=== PATIENT | male | born 1980 | race Hispanic/Latino ===

== ENCOUNTER 2023-01-05 15:15 | Emergency (ER) | payer MEDICARE, OTHER ==
[~2023-01-05] VITALS: Ht 175.3 cm; Wt 99.3 kg
[2023-01-05] MEDS ORDERED: CARBAMAZEPINE200 M1 (15:36)
[2023-01-05] MEDS ORDERED: DULOXETINE HCL30 MG (15:37)
[2023-01-05] MEDS ORDERED: CLARITIN10 M2 (15:37)
[2023-01-05] MEDS ORDERED: OMEPRAZOLE20 MG (15:37)
[2023-01-05] MEDS ORDERED: FAMOTIDINE20 MG (15:37)
[2023-01-05] MEDS ORDERED: SUCRALFATE1 GM (15:38)
[2023-01-05] MEDS ORDERED: VENTOLIN HFA18 GM (15:38)
[2023-01-05 15:47] LABS: BASOPHILS 0.6 % (0-2); EOSINOPHILS 1.5 % (0-6); HEMATOCRIT 49.4 % (35.0-50.0); HEMOGLOBIN 17.2 g/dL (12.0-18.0); LYMPHOCYTES 23.4 % (24-44); MCH 31.8 (27-36); MCHC 34.8 g/dl (30-36); MCV 91.3 fl (81-99); MONOCYTES 7.9 % (0-12); NEUTROPHILS 66.6 % (39-80); PLATELET COUNT 308 K/uL (140-440); RBC 5.41 M/ul (4.3-5.7); RDW 13.3 (10.5-15.0)
[2023-01-05 16:05] LABS: ALBUMIN 3.8 g/dL (3.4-5.0); ALBUMIN/GLOBULIN RATIO 0.97 (1.1-2.4); ALKALINE PHOSPHATASE 120 U/L (46-116); ANION GAP 12.8 (7-21); AST (SGOT) 22 U/L (15-37); BILIRUBIN, TOTAL 0.4 ng/dL (0.2-1.0); BUN/CREATININE RATIO 12.24 (6.0-28.6); CALCIUM 8.8 mg/dL (8.5-10.1); CARBAMAZEPINE (TEGRETOL) 2.2 ug/mL (4.0-12.0); CARBON DIOXIDE 28 mmol/L (21-32); CHLORIDE 104 mmol/L (98-107); CREATININE, SERUM 0.98 mg/dL (0.70-1.30); GLOMERULAR FILTRATION RATE,EST 100 mL/min (>60); POTASSIUM 3.8 mmol/L (3.5-5.1); PROTEIN, TOTAL 7.7 g/dL (6.4-8.2); UREA NITROGEN 12 mg/dL (7-18)
[2023-01-05 16:07] LABS: ALT (SGPT) 45 U/L (14-59)
[2023-01-05 16:20] LABS: INFLUENZA B NAA NEGATIVE (NEGATIVE); RESPIRATORY SYNCYTIAL VIR NAA NEGATIVE (NEGATIVE)
[2023-01-05] MEDS ORDERED: ONDANSETRON HCL4 MG PO (16:33)
[2023-01-05] MEDS ORDERED: MECLIZINE HCL25 MG PO (16:33)
[2023-01-05 16:52] VITALS: BP 125/86
--- NOTE | 2023-01-06 07:44 | EKG ---
[facility] [address] [place], [place] [address] Signed Normal sinus rhythm with sinus arrhythmia Normal ECG No previous ECGs available Confirmed by MIGUELINA SOTOMAYOR MD ([id number]) on 01/06/2023 7:44:27 AM Electronically Signed By: MIGUELINA SOTOMAYOR 01/06/23 0744 PATIENT NAME: WILLIAM MAR Electrocardiogram DATE OF : 84 PHYSICIAN: MIGUELINA SOTOMAYOR REPORT #: [id number] REPORT IS CONFIDENTIAL AND NOT TO BE RELEASED WITHOUT AUTHORIZATION
== END 2023-01-05 16:48 | disposition home or self-care (01) ==
LOC: ED 15:15
PROVIDERS: Internal Medicine
DX: R42 Dizziness and giddiness (principal); R10.13 Epigastric pain; Z11.52 Encounter for screening for COVID-19; G40.909 Epilepsy, unspecified, not intractable, without status epilepticus; Z79.899 Other long term (current) drug therapy; Z88.5 Allergy status to narcotic agent
CPT/HCPCS: 36415; 70450; 71045; 80053; 80156; 84484; 85025; 85379; 87502; 93005; 93010; A9270; C9113; C9803; J2405; U0002

== ENCOUNTER 2023-10-15 13:47 | Observation (INO) | payer MEDICARE, OTHER ==
[2023-10-15] VITALS (12 sets, daily range): BP systolic 115–130; BP diastolic 78–98
[~2023-10-15] VITALS: Ht 175.3 cm; Wt 89.1 kg
[~2023-10-15 13:47] MED LIST: CARBAMAZEPINE200 M1 PO; CLARITIN10 MG PO; DULOXETINE HCL30 MG PO; FAMOTIDINE40 MG PO; MECLIZINE HCL25 MG PO; OMEPRAZOLE20 MG PO; ONDANSETRON HCL4 MG PO; SUCRALFATE1 GM; VENTOLIN HFA18 GM
--- OUTSIDE RECORDS SUMMARY | 2023-10-15 13:54 | XMS ---
PreManage Notification: WLILIAM MAR Security Load Out Supervisor Events No recent Security Events currently on file CRITERIA MET - [facility] - 2 Visits in 30 Days CARE PROVIDERS -, [facility] Dentist: Claim Professional [facility] Michel PHONE: [phone] -Michel- Dentist: Claim Professional [facility] PHONE: [phone] MICHEL PRIMARY Clinic/Center: Primary Care [facility] CLINIC PHONE: [phone] KAELYN CHOI Nurse Practitioner Current PHONE: Unknown NANCY HIGHTOWER [facility] Current PHONE: Unknown Quin has no Care Guidelines for this patient. Damian VISIT COUNT (12 MO.) [address] [facility] TOTAL 4 NOTE: Visits indicate total known visits. ED/UCC VISIT TRACKING (12 MO.) 10/15/2023 13:48 [facility] Schraderony [facility] [place] TYPE: Emergency COMPLAINT: - CHOCKING 10/05/2023 11:53 ABENA Reza [place] TYPE: Emergency COMPLAINT: - SEIZURE DIAGNOSES: - Allergy status to narcotic agent - Epilepsy, unspecified, not intractable, without status epilepticus - Other mcfp (current) drug therapy - Unspecified convulsions 06/05/2023 10:34 [facility] Schraderony [facility] [place] TYPE: Emergency COMPLAINT: - FALL DUE TO SEIZURE,R LEG PAIN,LOSS OF R SIDE BODY DIAGNOSES: - Allergy status to narcotic agent - Anesthesia of skin - Cervicalgia - Contusion of right foot, initial encounter - Exposure to other specified factors, initial encounter - Other generalized epilepsy and epileptic syndromes, not intractable, without status epilepticus - Other osteopathic neurologist (current) drug therapy - Pain in right knee - Pain in right shoulder - Patient's other noncompliance with medication regimen for other reason 01/05/2023 15:[address] [facility] [place] TYPE: Emergency COMPLAINT: - CHEST PAIN, DIFFICULTY BREATHING DIAGNOSES: - Allergy status to narcotic agent - Chest pain, unspecified - Contact with and (suspected) exposure to COVID-19 - Dizziness and giddiness - Encounter for screening for COVID-19 - Epigastric pain - Epilepsy, unspecified, not intractable, without status epilepticus - Other osteopathic neurologist (current) drug therapy INPATIENT VISIT TRACKING (12 MO.) No inpatient visits to display in this time frame [email or web address]
[2023-10-15 14:02] LABS: BASOPHILS 0.5 % (0-2); HEMATOCRIT 52.3 % (35.0-50.0); LYMPHOCYTES 23.6 % (24-44); MCH 31.7 (27-36); MCHC 34.4 g/dl (30-36); MCV 92.3 fl (81-99); MONOCYTES 7.1 % (0-12); NEUTROPHILS 67.8 % (39-80); PLATELET COUNT 287 K/uL (140-440); RBC 5.66 M/ul (4.3-5.7); RDW 13.5 (10.5-15.0)
[2023-10-15 14:18] LABS: ALBUMIN 4.2 g/dL (3.4-5.0); ALBUMIN/GLOBULIN RATIO 1.02 (1.1-2.4); ANION GAP 14.8 (7-21); BILIRUBIN, TOTAL 0.3 ng/dL (0.2-1.0); BUN/CREATININE RATIO 14.14 (6.0-28.6); CALCIUM 9.1 mg/dL (8.5-10.1); CREATININE, SERUM 0.99 mg/dL (0.70-1.30); POTASSIUM 3.8 mmol/L (3.5-5.1); PROTEIN, TOTAL 8.3 g/dL (6.4-8.2)
[2023-10-15] MEDS ORDERED: LORazepam 2 MG/ML VIAL IV ONE (16:30)
[2023-10-15] MEDS ORDERED: AMP/SULBACTAM SOD 3 GM in SODIUM CHLORIDE 0.9% 100 ML IV ONE (17:15)
[2023-10-15] MEDS ORDERED: DEXAMETHASONE SOD PHOS 10 MG/ML VIAL IV ONE (18:30)
[2023-10-15] MEDS ORDERED: ALBUTEROL/IPRATROPIUM 3 ML NEB INH ONE (18:30)
[2023-10-15] MEDS ORDERED: SODIUM CHLORIDE 0.9% 1,000 ML IV SCH (18:45)
[2023-10-15] MEDS ORDERED: ALBUTEROL SULFATE 0.083% 3 ML VIAL INH PRN (18:45)
[2023-10-15] MEDS ORDERED: ondansetron HCL 4 MG/2 ML VIAL IV PRN (18:45)
--- NOTE | 2023-10-15 19:17 | NUR ---
REPORT FROM DINORAH GAMEZ, ED NURSE. ALL QUESTIONS ANSWERED.
--- NOTE | 2023-10-15 19:25 | NUR ---
PATIENT ARRIVED VIA CCU NURSE TULIO Mcdonough RN, PATIENT ARRIVED VIA ED STRETCHER, PATIENT ABLE TO TRANSFER TO HOSPITAL BED, HE IS NOTED TO HAVE AUDIBLE WHEEZES, HE IS ALERT AND ORIENTED X4. HE IS ON ROOM AIR. TALKING CLEARLY, OCCASSIONALLY COUGHING. V/S STABLE
[2023-10-15] MEDS ORDERED: ENOXAPARIN SODIUM 40 MG/0.4 ML SYR SUB-Q SCH (19:56)
[2023-10-15] MEDS ORDERED: ALBUTEROL SULFATE 0.083% 3 ML VIAL INH SCH (20:00)
--- NOTE | 2023-10-15 21:15 | NUR ---
RN NOTIFIED MD OF PATIENT'S GI AND SEIZURE HX. NEW ORDERS RECEIVED AND VERIFIED VIA VERBAL READ BACK. MD CLARIFICATED PATIENTS MEDICAL STATUS AND IS COMFORTABLE WITH PATIENT MEDICAL STATUS BEING MED/SURG.
[2023-10-15] MEDS ORDERED: carBAMazepine 200 MG TAB PO SCH (21:34)
[2023-10-15] MEDS ORDERED: MORPHINE SULFATE 4 MG/ML VIAL IV PRN (21:45)
[2023-10-15] MEDS ORDERED: ACETAMINOPHEN 500 MG TAB PO PRN (21:45)
[2023-10-15] MEDS ORDERED: LORazepam 2 MG/ML VIAL IV PRN (21:45)
[2023-10-15] MEDS ORDERED: PANTOPRAZOLE SODIUM 40 MG/10 ML VIAL IV SCH (22:00)
[2023-10-15] MEDS ORDERED: AMP/SULBACTAM SOD 3 GM in SODIUM CHLORIDE 0.9% 100 ML IV SCH (22:00)
--- NOTE | 2023-10-15 22:45 | NUR ---
HS MEDICATIONS GIVEN. PATIENT GIVEN AN IS AND WAS INSTRUCTED ON HOW TO USE IT. PATIENT DEMONSTRATES UNDERSTANDING BY VERBAL TEACH BACK AND DEMONSTRATION. NOTED OXYGEN DESATURATION 86%-89% ON RA WHILE SLEEPING. 2L OXYGEN VIA NC PLACED ON PATIENT. O2SAT WNL AT THIS TIME. NO FURTHER NEEDS AT THIS TIME. CALL LIGHT WITHIN REACH.
--- NOTE | 2023-10-16 00:07 | NUR ---
PATIENT RESTING IN BED. DENIES ANY SOB, LUNG SOUNDS WHEEZING IN UPPER LOBES AND DIM IN LOWER LOBES. PATIENT TRIED TO VOID USING URINAL WITH NO SUCCESS. PATIENT STATING, "I DON'T NEED TO PEE RIGHT NOW." RT IN TO SEE PATIENT, PATIENT DOES NOT WISH TO HAVE HIS BREATHING TREATMENT. NO FURTHER NEEDS AT THIS TIME. CALL LIGHT WITHIN REACH.
[2023-10-16] MEDS ORDERED: AMP/SULBACTAM SOD 3 GM VIAL IV ONE (01:55)
[2023-10-16] MEDS ORDERED: AMP/SULBACTAM SOD 3 GM in SODIUM CHLORIDE 0.9% 100 ML IV SCH (02:00)
--- NOTE | 2023-10-16 02:00 | NUR ---
PATIENT ABLE TO VOID 300ML URINE IN URINAL. NO NEW CONCERNS, PATIENT HAS NO REQUESTS, REPORTS NO NEEDS AT THIS TIME.
--- NOTE | 2023-10-16 03:32 | NUR ---
PATIENT RESTING QUIETLY IN BED, EYES CLOSED RESPIRATIONS REGULAR AT 15/MIN. NO DISTRESS NOTED.
[2023-10-16 04:48] VITALS: BP 133/102
[2023-10-16 05:25] LABS: BASOPHILS 0.2 % (0-2); HEMATOCRIT 45.7 % (35.0-50.0); HEMOGLOBIN 15.3 g/dL (12.0-18.0); MCH 31.1 (27-36); MCHC 33.4 g/dl (30-36); MCV 93.1 fl (81-99); NEUTROPHILS 84.8 % (39-80); PLATELET COUNT 231 K/uL (140-440); RBC 4.91 M/ul (4.3-5.7); RDW 13.4 (10.5-15.0)
[2023-10-16 05:31] LABS: ANION GAP 9.2 (7-21); BUN/CREATININE RATIO 11.11 (6.0-28.6); CALCIUM 8.5 mg/dL (8.5-10.1); CREATININE, SERUM 0.72 mg/dL (0.70-1.30); POTASSIUM 4.2 mmol/L (3.5-5.1)
[2023-10-16 05:38] VITALS: BP 109/77
--- NOTE | 2023-10-16 05:49 | NUR ---
PATIENT ALERT AND ORIENTED THIS AM, HE HAS REPORTED A 5/10 HEADACHE ONLY COMPLAINT, TYLENOL PRN ADMINISTERED. HE IS EATING JELLO AND APPLE JUICE PER CLEAR LIQUID DIET, STILL HAS OCCASSIONAL COUGH, LESS OFTEN THAN WHEN ADMITTED. WILL BE TRANSFERING TYLER TO ROOM 122.
--- NOTE | 2023-10-16 07:05 | NUR ---
REPORT RECIEVED FROM VERA XIE. PT SITTING UP IN BED AND RESPONDS WHEN ADDRESSED. PT REQUESTING TISSUES, PROVIDED. PT DENIES ANY OTHER NEEDS AT THIS TIME. CALL LIGHT IN REACH.
--- NOTE | 2023-10-16 08:02 | NUR ---
PATIENT IN BED AT THIS TIME. CALL LIGHT WITHIN REACH, NO FURTHER NEEDS AT THIS TIME.
[2023-10-16] MEDS ORDERED: ALBUTEROL SULFATE 0.083% 3 ML VIAL INH PRN (08:15)
--- NOTE | 2023-10-16 08:28 | NUR ---
IN TO ADMINISTER MEDICATIONS, SEE MAR. PT SITTING UP IN BED AND RESPONDS WHEN ADDRESSED. PT REPORITNG PAIN IN LEFT ARM 06/17 AND PT STATES "I AM FINE LONG I DO NOT MOVE IT." OFFERED HOT PACKS, PT ACCEPTS. HOT PACKS PROVIDED AND PLACED ON PTs SHOULDER AND ARM WITH CLOTH BETWEEN SKIN AND HOT PACK. PT TAKES PO MEDICATIONS WITH NO ISSUES. ASSESSMENT COMPLETE. LUNG SOUNDS CLEAR IN RUL AND JOANIE. DIMINISHED IN RLL AND LLL. SOME CRACKLES IN LLL. BOWEL TONES ACITE. RADIAL PULSES PALPABLE, EQUAL AND STRONG. PEDAL PULSES PALPABLE, EQUAL AND STRONG. IVs FLUSH WNL. PT DENIES ANY OTHER NEEDS AT THIS TIME. CALL LIGHT IN REACH.
[2023-10-16] MEDS ORDERED: PANTOPRAZOLE SODIUM 40 MG TABEC PO SCH (09:00)
[2023-10-16] MEDS ORDERED: AMOX TR-K CLV1 EAC1 PO (09:08)
[2023-10-16 09:23] VITALS: BP 112/70
--- NOTE | 2023-10-16 09:48 | NUR ---
IN TO ROUND ON PT. PT SITTING UP IN BED AND REPSONDS WHEN ADDRESSED. IV ABX COMPLETE. PT SL AT THIS TIME. PT STATING PAIN "IS BETTER." PT REPORTING BEING DONE WITH BREAKFAST TRAY, TRAY REMOVED. PT DENIES ANY OTHER NEEDS AT THIS TIME. CALL LIGHT IN REACH.
[2023-10-16 10:03] VITALS: BP 112/70
--- NOTE | 2023-10-16 10:28 | NUR ---
SPOKE TO PATIENT ABOUT THE DC PLAN. PATIENT LIVES WITH HIS FRIEND. PATIENT PLANS TO GO HOME TODAY. PATIENT IS HOPING TO GET HIS DAILY MEDICATIONS TRANSFERED TO [facility] FROM [facility]. PHONE NUMBERS FOR THE [facility] WERE GIVEN TO PATIENT. PATIENT CAN NOT THINK OF ANYTHING CASE MANAGEMENT CAN HELP WITH AT THIS TIME. PATIENT CAN AFFORD FOOD, MEDICATIONS AND HOUSING. PATIENT DOES NOT USE DME. PATIENT HAS NO OTHER ISSUES AT THIS TIME.
--- NOTE | 2023-10-16 11:48 | NUR ---
MED REC COMPLETE
[2023-10-16] MEDS ORDERED: PHARMACY RENAL DOSE ADJUSTMENT 1 DOSE MISC PO SCH (12:00)
--- NOTE | 2023-10-16 12:13 | NUR ---
IN TO GO OVER DC INSTRUCTIONS. WRITTEN AND VERBAL INSTRUCTIONS PROVIDED. QUESTIONS ANSWERED. PT VERBALIZES UNDERSTANDING. IVs REMOVED WNL. PT DENIES ANY OTHER NEEDS FROM THIS RN AT THIS TIME. CALL LIGHT IN REACH.
[2023-10-16 12:49] VITALS: BP 109/72
[2023-10-16] MEDS ORDERED: ALBUTEROL/IPRATROPIUM 3 ML NEB INH SCH (14:00)
--- NOTE | 2023-10-16 15:09 | NUR ---
UR CLINICAL REVIEW: 2MN ALEK, MEETS OBS CRITERIA MEDICARE OBS 10/15/23 @ 2159 ORDER MATCHES STATUS NO AUTH REQUIRED PER MEDICARE RULES PLAN TO DC TO HOME WHEN STABLE 10/17/23
[2023-11-21] MEDS ORDERED: CARAFATE1 GM PO (11:24)
== END 2023-10-16 13:13 | disposition home or self-care (01) ==
LOC: ED 13:47 → CCU 13:49 → MS 13:49
PROVIDERS: Emergency Medicine; ADMIT Internal Medicine; ATTEND Internal Medicine
DX: J69.0 Pneumonitis due to inhalation of food and vomit (principal); Z88.5 Allergy status to narcotic agent; Z79.899 Other long term (current) drug therapy; R56.9 Unspecified convulsions; Z88.1 Allergy status to other antibiotic agents
CPT/HCPCS: 36415; 70360; 70491; 71045; 71260; 80048; 80053; 80156; 80307; 81001; 85025; 94640; 94667; 94760; 96372; 96374; 96375; 96376; 99284-25; 99285-25; A9270; G0378; G0480; J0295; J1100; J1650; J2060; J2405; J2470; J7030; Q9967

== ENCOUNTER 2023-10-16 13:21 | Emergency (ER) | payer MEDICARE, OTHER ==
[~2023-10-16] VITALS: Ht 175.3 cm; Wt 92.6 kg
[~2023-10-16 13:21] MED LIST changes: +AMOX TR-K CLV1 EAC1 PO
--- OUTSIDE RECORDS SUMMARY | 2023-10-16 13:28 | XMS ---
PreManage Notification: WILLIAM MAR Security Guide Escort Events No recent Security Events currently on file CRITERIA MET - [facility] - 2 Visits in 30 Days CARE PROVIDERS -, [facility] Dentist: Executive Creative Director [facility] Michel PHONE: [phone] -Michel- Dentist: Executive Creative Director [facility] PHONE: [phone] MICHEL PRIMARY Clinic/Center: Primary Care [facility] CLINIC PHONE: [phone] KAELYN CHOI Nurse Practitioner Current PHONE: Unknown NANCY HIGHTOWER [facility] Current PHONE: Unknown Quin has no Care Guidelines for this patient. Damian VISIT COUNT (12 MO.) [address] [facility] TOTAL 5 NOTE: Visits indicate total known visits. ED/UCC VISIT TRACKING (12 MO.) 10/16/2023 13:21 ABENA Reza [place] TYPE: Emergency COMPLAINT: - SEIZURE 10/15/2023 13:48 ABENA Reza [place] TYPE: Emergency COMPLAINT: - CHOCKING 10/05/2023 11:53 ABENA Reza [place] TYPE: Emergency COMPLAINT: - SEIZURE DIAGNOSES: - Allergy status to narcotic agent - Epilepsy, unspecified, not intractable, without status epilepticus - Other equipment operator intermodal yard (current) drug therapy - Unspecified convulsions 06/05/2023 10:34 ABENA Reza [place] TYPE: Emergency COMPLAINT: - FALL DUE TO SEIZURE,R LEG PAIN,LOSS OF R SIDE BODY DIAGNOSES: - Allergy status to narcotic agent - Anesthesia of skin - Cervicalgia - Contusion of right foot, initial encounter - Exposure to other specified factors, initial encounter - Other generalized epilepsy and epileptic syndromes, not intractable, without status epilepticus - Other senior care (current) drug therapy - Pain in right knee - Pain in right shoulder - Patient's other noncompliance with medication regimen for other reason 01/05/2023 15:16 ABENA Reza [place] TYPE: Emergency COMPLAINT: - CHEST PAIN, DIFFICULTY BREATHING DIAGNOSES: - Allergy status to narcotic agent - Chest pain, unspecified - Contact with and (suspected) exposure to COVID-19 - Dizziness and giddiness - Encounter for screening for COVID-19 - Epigastric pain - Epilepsy, unspecified, not intractable, without status epilepticus - Other senior care (current) drug therapy INPATIENT VISIT TRACKING (12 MO.) 10/15/2023 13:49 ABENA Reza OR TYPE: Observation COMPLAINT: - ASPIRATION PNEUMONIA [email or web address]
[2023-10-16] MEDS ORDERED: levETIRAcetam 500 MG/5 ML VIAL IV ONE (13:35)
[2023-10-16] MEDS ORDERED: LORazepam 2 MG/ML VIAL IV ONE (13:45)
[2023-10-16 13:46] LABS: BASOPHILS 0.3 % (0-2); EOSINOPHILS 0.1 % (0-6); HEMATOCRIT 45.9 % (35.0-50.0); HEMOGLOBIN 15.4 g/dL (12.0-18.0); MCH 31.2 (27-36); MCHC 33.5 g/dl (30-36); MCV 93.2 fl (81-99); MONOCYTES 7.4 % (0-12); NEUTROPHILS 72.2 % (39-80); PLATELET COUNT 239 K/uL (140-440); RBC 4.92 M/ul (4.3-5.7); RDW 13.2 (10.5-15.0)
[2023-10-16 14:03] LABS: ALBUMIN 3.6 g/dL (3.4-5.0); ALBUMIN/GLOBULIN RATIO 1.03 (1.1-2.4); ALCOHOL, MEDICAL <3 ng/dL (<3); ALKALINE PHOSPHATASE 120 U/L (46-116); ALT (SGPT) 17 U/L (14-59); ANION GAP 12.5 (7-21); AST (SGOT) 10 U/L (15-37); BILIRUBIN, TOTAL 0.4 ng/dL (0.2-1.0); BUN/CREATININE RATIO 11.36 (6.0-28.6); CALCIUM 8.5 mg/dL (8.5-10.1); CARBON DIOXIDE 28 mmol/L (21-32); CHLORIDE 106 mmol/L (98-107); CREATININE, SERUM 0.88 mg/dL (0.70-1.30); GLOMERULAR FILTRATION RATE,EST 111 mL/min (>60); POTASSIUM 3.5 mmol/L (3.5-5.1); PROTEIN, TOTAL 7.1 g/dL (6.4-8.2); UREA NITROGEN 10 mg/dL (7-18)
[2023-10-16 14:07] LABS: CARBAMAZEPINE (TEGRETOL) 6.7 ug/mL (4.0-12.0)
[2023-10-16 16:14] LABS: BILIRUBIN, URINE POSITIVE (negative); BLOOD/HGB, URINE TRACE-I (Negative); KETONE, URINE NEGATIVE (Negative); LEUK ESTERASE, URINE NEGATIVE (negative); NITRITE, URINE NEGATIVE (negative)
[2023-10-16 16:21] LABS: BACTERIA, URINE NONE SEEN /hpf (negative); CASTS, URINE NONE SEEN \\lpf; COLLECTION TYPE, URINE CLEAN CATCH; CRYSTALS, URINE NONE SEEN (0-1+); EPITHELIAL CELLS, URINE SQUAMOUS 1+ /lpf (0-1+); RED BLOOD CELLS, URINE 0-1 /hpf (0-5); REFLEX CULTURE, URINE No (No); WHITE BLOOD CELLS, URINE 0-1 /HPF (0-5)
[2023-10-16 16:36] LABS: AMPHETAMINES, URINE NEGATIVE (NEGATIVE); BARBITURATES, URINE NEGATIVE (NEGATIVE); BENZODIAZEPINE, URINE NEGATIVE (NEGATIVE); BUPRENORPHINE, URINE NEGATIVE (NEGATIVE); CANNABINOID, URINE NEGATIVE (NEGATIVE); COCAINE, URINE NEGATIVE (NEGATIVE); ECSTASY, URINE NEGATIVE (NEGATIVE); FENTANYL, URINE NEGATIVE (NEGATIVE); METHADONE, URINE NEGATIVE (NEGATIVE); OPIATES, URINE NEGATIVE (NEGATIVE); OXYCODONE, URINE NEGATIVE (NEGATIVE); PHENCYCLIDINE, URINE NEGATIVE (NEGATIVE)
[2023-10-16 17:35] VITALS: BP 112/78
== END 2023-10-16 17:35 | disposition home or self-care (01) ==
LOC: ED 13:21
PROVIDERS: Emergency Medicine
DX: R56.9 Unspecified convulsions (principal); Z79.899 Other long term (current) drug therapy; Z88.5 Allergy status to narcotic agent; Z88.1 Allergy status to other antibiotic agents
CPT/HCPCS: 36415; 80053; 80156; 80307; 81001; 85025; 96374; 99284-25; G0480; J2060

== ENCOUNTER 2024-01-02 18:28 | Inpatient (IN) | payer MEDICARE, OTHER ==
[~2024-01-02] VITALS: Ht 175.3 cm; Wt 87.6 kg
[~2024-01-02 18:28] MED LIST changes: +CARAFATE1 GM PO; +SEVOFLURANE 250 ML BTL INH ONE
[2024-01-02] MEDS ORDERED: PANTOPRAZOLE SODIUM 40 MG/10 ML VIAL IV ONE (18:45)
[2024-01-02] MEDS ORDERED: LACTATED RINGER'S 1,000 ML IV SCH ×2 (19:30→20:15)
[2024-01-02] MEDS ORDERED: FAMOTIDINE 20 MG/ 2 ML VIAL IV ONE (19:30)
[2024-01-02 19:56] LABS: BASOPHILS 0.6 % (0-2); EOSINOPHILS 2.6 % (0-6); HEMATOCRIT 47.7 % (35.0-50.0); HEMOGLOBIN 16.4 g/dL (12.0-18.0); LYMPHOCYTES 28.9 % (24-44); MCH 31.5 (27-36); MCHC 34.3 g/dl (30-36); MCV 91.8 fl (81-99); MONOCYTES 9.8 % (0-12); NEUTROPHILS 58.1 % (39-80); PLATELET COUNT 303 K/uL (140-440); RDW 13.7 (10.5-15.0)
[2024-01-02 20:02] LABS: INR 0.96 (0.80-1.30)
[2024-01-02 20:15] LABS: ALBUMIN 3.5 g/dL (3.4-5.0); ALBUMIN/GLOBULIN RATIO 0.9 (1.1-2.4); ANION GAP 11.7 (7-21); BILIRUBIN, TOTAL 0.4 ng/dL (0.2-1.0); BUN/CREATININE RATIO 15.71 (6.0-28.6); CREATININE, SERUM 0.7 mg/dL (0.70-1.30); POTASSIUM 3.7 mmol/L (3.5-5.1); PROTEIN, TOTAL 7.4 g/dL (6.4-8.2); TSH, 3RD GENERATION 1.727 uIU/mL (0.358-3.740)
[2024-01-02] MEDS ORDERED: propofoL 200 MG/20 ML VIAL ONE (20:32)
[2024-01-02] MEDS ORDERED: LIDOCAINE HCL 2% 5 ML SDV ONE (20:32)
[2024-01-02] MEDS ORDERED: fentaNYL citrate 100 MCG/2 ML VIAL ONE (20:32)
[2024-01-02] MEDS ORDERED: ROCURONIUM BROMIDE 50 MG/5 ML SYR ONE (20:34)
[2024-01-02] MEDS ORDERED: ePHEDrine sulfate 50 MG/ML AMP ONE (20:42)
[2024-01-02] MEDS ORDERED: fentaNYL citrate 50 MCG/ML SDV IV PRN (20:45)
[2024-01-02] MEDS ORDERED: IBLOOD GLUCOSE TEST STRIP 1 EA TEST VI PRN (20:45)
[2024-01-02] MEDS ORDERED: NALOXONE HCL 0.4 MG SYR IV PRN (20:45)
[2024-01-02] MEDS ORDERED: ondansetron HCL 4 MG/2 ML VIAL IV PRN (20:45)
[2024-01-02] MEDS ORDERED: DEXAMETHASONE SOD PHOS 4 MG/ML VIAL ONE (20:47)
[2024-01-02] MEDS ORDERED: SUGAMMADEX SODIUM 200 MG/2 ML ML ONE (20:52)
[2024-01-02] MEDS ORDERED: FAMOTIDINE 20 MG/ 2 ML VIAL IV SCH (21:00)
[2024-01-02] MEDS ORDERED: PANTOPRAZOLE SODIUM 40 MG/10 ML VIAL IV SCH (21:26)
[2024-01-02] MEDS ORDERED: carBAMazepine 200 MG TAB PO SCH (21:27)
[2024-01-02] MEDS ORDERED: DULOXETINE HCL 30 MG CAP PO SCH (21:28)
[2024-01-02] MEDS ORDERED: SUCRALFATE 1 GM TAB PO SCH (21:30)
--- NOTE | 2024-01-02 21:50 | NUR ---
PT ARRIVED TO ROOM 114 FROM PACU, THIS RN RECEIVED REPORT FROM BETH GAMEZ. PT SLEEPY, BUT RESPONDS. SLOW, BUT ABLE TO MOVE SELF WITH CUES. PT A/O.
[2024-01-02 22:01] VITALS: BP 111/76
--- NOTE | 2024-01-02 22:10 | NUR ---
01/02/242209 Pam Henley 2109 PT ARRIVED IN PACU SLEEPY AND COUGHING. SUCTIONED MOUTH. 2124 DR AT BEDSIDE. PT OPENS EYES, BUT DOESN'T ANSWER QUESTIONS ASKED BY DR. CONTINUES TO COUGH. 2139 PT OPENS EYES TO VERBAL COMMAND, THEN CLOSES THEM. COUGHING AND SUCTIONED BY RN. 2151 TO ROOM 114. PT MOVED SELF FROM STRECHER TO BED WITH HELP FROM RN'S. REPORT GIVEN TO RN.
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
[2024-01-02 22:55] VITALS: BP 112/73
[2024-01-02 23:58] VITALS: BP 109/72
[2024-01-03] VITALS (13 sets, daily range): BP systolic 11–152; BP diastolic 55–79
--- NOTE | 2024-01-03 00:12 | NUR ---
POST OP VSS, pt ABLE TO MAINTAIN AIRWAY AND TOLERATING CLEAR LIQUIDS SAFELY, pt EDUCATED ON CHIN TUCK AND HOB ELEVATED FOR MED ADMINISTRATION-SEE EMAR. pt TOLERATED MEDS WNL. NO FURTHER NEEDS OR CONCERNS, CALL LIGHT IN REACH.
--- NOTE | 2024-01-03 00:30 | NUR ---
REVIEWING PT LAST ADMISSION 11/2023, RISHI SPOKE WITH PT AND NUMBERS WERE GIVEN FOR DHS, INFORMATION GIVEN WELL FOR VARIOUS PROGRAMS WITHIN THE COMMUNITY FOR ASSISTANCE. PER CHART 11/21/23, [facility] NUMBER GIVEN WELL. PT DID STATE THAT SAFEWAY HAS LEFT SEVERAL MESSAGES HIS PERSCRIPTIONS WERE READY, "DON'T BLAME THEM, ITS MY FAULT". CM CONSULT IN CHART.
--- NOTE | 2024-01-03 00:40 | NUR ---
rounded on pt, pt resting in bed with eyes closed and on ra. rr even and unlabored. no distress noted. cpox at bedsid, spo2 upper 90's. hr wnl. call light in reach along with other belongings.
--- NOTE | 2024-01-03 01:35 | NUR ---
rounded on pt, pt continues to rest in bed with eyes close and on ra. rr even and unlabored, rate approx 16. no resp distress noted. cpox in place, spo2 96%, hr 94. iv site wnl, fluids infusing as directed. call light in reach.
--- NOTE | 2024-01-03 03:00 | NUR ---
CREDIT REFERENCE CLERK PLACED SEIZURE PAD ON PT BED. PT REMAINED ASLEEP. CALL LIGHT WITHIN REACH.
--- NOTE | 2024-01-03 04:32 | NUR ---
ROUNDED ON pt, pt RESTING IN BED WITH EYES CLOSED AND ON RA. RR EVEN AND UNLABORED. IV SITE WNL, FLUIDS INFUSING DIRECTED. CALL LIGHT IN REACH.
--- NOTE | 2024-01-03 05:44 | NUR ---
STEEL SPAR OPERATOR OBTAINED VITALS AND I&O. PT STATES NO NEEDS AT THIS TIME. CALL LIGHT WITHIN REACH.
--- NOTE | 2024-01-03 06:28 | NUR ---
SCHEDULED CARAFATE GIVEN-SEE EMAR VIA SLURRY. pt INTERACTIVE WITH STAFF, EAGER TO GO HOME AND SEE HIS CATS. NO FURTHER NEEDS OR CONCERN VERBALIZED. CALL LIGHT IN REACH. NO ACUTE CHANGES TO FOCUSED ASSESSMENT.
--- NOTE | 2024-01-03 06:35 | NUR ---
NEW BAG IV FLUIDS INFUSING DIRECTED, IV SITE WNL. PUMP CLARED. CALL LIGHT IN REACH.
--- NOTE | 2024-01-03 08:00 | NUR ---
PT had both iv protonix and po protonix ordered. md notified. vo given to d/c iv protonix if tolerating po medications. iv protonix dc'd.
--- NOTE | 2024-01-03 08:50 | NUR ---
PT TOLERATED A.M. PO MEDICATIONS. DENIED FEELING THAT MEDICATIONS WERE FEELING STUCK. PT RECEIVED BREAKFAST AND STATED THE JELLO FELT THAT IT "GOT STUCK" IN HIS THROAT AND BEGAN TO VOMIT.
[2024-01-03] MEDS ORDERED: PANTOPRAZOLE SODIUM 40 MG TABEC PO SCH (09:00)
--- NOTE | 2024-01-03 10:15 | NUR ---
PT REPORTED MIDSTERNAL CHEST PAIN. DESCRIBED STABBING PAIN THAT DID NOT RADIATE. PT DENIES HX OF SIMILAR PAIN OR CARDIAC HX. PT IS NON DIAPHORETIC. DENIES NAUSEA ATT. BP 113/79 HR 98 SPO2 96%. CHARGE NURSE AND MD NOTIFIED. NEW ORDERS WERE GIVEN FOR EKG, TROPONIN, MORPHINE 2MG IV, AND ONE TIME NOW DOSE OF CARAFATE. MD AT BEDSIDE. WILL CONTINUE TO MONITOR PT.
[2024-01-03] MEDS ORDERED: MORPHINE SULFATE 4 MG/ML VIAL IV ONE (10:30)
[2024-01-03] MEDS ORDERED: SUCRALFATE 1 GM TAB PO ONE (10:30)
--- NOTE | 2024-01-03 10:44 | NUR ---
pt states morphine is helping. rates pain 4/10. denies any other needs at this time. pt tolerated carafate slurry. call light within reach.
--- NOTE | 2024-01-03 10:44 | NUR ---
RN ARRIVES TO NURSES STATION, PT C/O CHEST PAIN, ON/OFF FOR LAST COUPLE HOURS. MD NOTIFIED VIA PRIMARY RN VIA TELEPHONE. ORDER TO GET EKG, MD COMING TO BEDSIDE SHORTLY. WHEN IN ROOM, EKG COMPLETED, PT STATES PAIN 08/17. MD ARRIVES TO BEDSIDE AND REVIEWS EKG. ORDER FOR TROPONIN, X1 DOSE MORPHINE 2MG IV, AND CARAFAT 1GM ONCE (EXTRA DOSE). ORDERS INPUT SEE MAY. PRIMARY RN AWARE OF ORDERS.
[2024-01-03] MEDS ORDERED: NITROGLYCERIN 0.4 MG SUBL SL PRN (10:45)
[2024-01-03] MEDS ORDERED: LIDOCAINE 2% (VISCOUS) HCL 15 ML UDC PO PRN (10:45)
[2024-01-03] MEDS ORDERED: CARBAMAZEPINE200 M3 PO (11:00)
--- NOTE | 2024-01-03 12:28 | NUR ---
rounded on pt. pt appears to be sleeping comfortably. respirations even and regular. call light within reach.
--- NOTE | 2024-01-03 12:58 | NUR ---
ROUNDED ON PT. PT IS A/O, RESPIRATIONS EVEN AND REGULAR. IV FLUIDS RUNNING. PT IS ATTEMPTING TO EAT LUNCH OF CLEAR LIQUIDS. PT STATES HE CONTINUES TO HAVE PAIN BUT IT HAS IMPROVED.
--- NOTE | 2024-01-03 14:08 | NUR ---
PT STATES HE ONLY TRIED GRAPE JUICE FOR LUNCH BUT WAS ABLE TO TOLERATE AND SWALLOW WELL. DENIES N/V. REPORTS CONTINUED PAIN 4/10. STATES PAIN IS CONTINUED IN ABDOMEN WHICH IS HIS BASELINE AND 4/10 CP. MD AWARE, POSSIBLE ESOPHOGEAL SPASMS.
--- NOTE | 2024-01-03 14:34 | NUR ---
medications reconciled. patient has prescribed medications but is non-compliant
--- NOTE | 2024-01-03 16:11 | NUR ---
PT REPORTS INCREASED CP WITH 5/10 PAIN. STATES THE PAIN IS A STABBING INTERMITTENT PAIN THAT DOES NOT RADIATE. PT STATES SOME OF THE PAIN IS IN HIS THROAT. PT DOES NOT APPEAR TO BE IN ACUTE DISTRESS AND IS NON DIAPHORETIC. TELE MONITOR IN PLACE. CHARGE NURSE NOTIFIED. WILL CONTINUE TO MONITOR.
--- NOTE | 2024-01-03 16:19 | NUR ---
PT VS WNL POST SL NTG. PT STATES NITRO IS HELPING AND RATES PAIN 4/[address]
--- NOTE | 2024-01-03 16:51 | NUR ---
ROUNDED ON PT. PT STATES PAIN HAS DECREASED. PT IS A/O, RESPIRATIONS EVEN AND REGULAR. CALL LIGHT WITHIN REACH. IV FLUIDS RUNNING.
--- NOTE | 2024-01-03 17:34 | NUR ---
ROUNDED ON PT. PT IS A/O, RESPIRATIONS EVEN AND REGULAR. DENIES PAIN/NEEDS ATT. SITTING UP TO START DINNER.
--- NOTE | 2024-01-03 18:14 | NUR ---
PT IS A/O, RESPIRATIONS EVEN AND REGULAR. IV FLUIDS RUNNING. PT STATES THAT HE WAS ABLE TO TOLERATE DINNER MUCH BETTER. PT REPORTS 0/10 CHEST PAIN. CALL LIGHT WITHIN REACH.
--- NOTE | 2024-01-03 19:51 | NUR ---
CALLED DR SAHU, CLARIFICATION OF TELE ORDER. MESSAGE LEFT
--- NOTE | 2024-01-03 19:54 | NUR ---
PER TELEPHONE ORDER, OK TO DC TELE, OBSERVE FOR ASPIRATION/SWALLOWING PRECAUTIONS/ISSUES, OFFER VISCOUS LIDOCAINE MED TONIGHT. CALL FOR ANY ISSUES
--- NOTE | 2024-01-03 20:09 | NUR ---
PATIENT IN BED RESTING AT THIS TIME. VITALS DONE AND CHARTED. CALL LIGHT IN REACH. NO FURTHER NEEDS AT THIS TIME.
[2024-01-03] MEDS ORDERED: FAMOTIDINE 20 MG TAB PO SCH (21:00)
--- NOTE | 2024-01-03 21:54 | NUR ---
VISCOUS LIDOCAINE 5CC GIVEN PER ORDERS. TOLERATED WELL, TELE#2 DC'D. CPOX ON AT BEDSIDE, NO C/O AT THIS TIME, SEIZURE PRECAUTION PADS IN PLACE. IVF INFUSING
--- NOTE | 2024-01-03 22:21 | NUR ---
AWAKE, WATCHING TV, NO FURTHER C/O TROUBLE SWALLOWING, SEIZURE PADS IN PLACE
[2024-01-04] VITALS (10 sets, daily range): BP systolic 109–119; BP diastolic 65–79
--- NOTE | 2024-01-04 00:59 | NUR ---
Resting, eyes closed, on room air, no ss/x distress or swallowing difficulties, CPOX on at bedside, WNL. no s/sx seizure, seizure pads in place
--- NOTE | 2024-01-04 02:42 | NUR ---
RESTING, EYES CLOSED, NO SX DISTRESS OR SEIZURE ACTIVITY. SEIZURE PADS IN PLACE, IVF INFUSING W/O PROBLEMS.
--- NOTE | 2024-01-04 05:40 | NUR ---
Awakens easily, no c/o swallowing trouble, taking very small sips of fluids. tolerating well. on room air. Used urinal, voiding medium dark yellow urine. Repositioned in bed, CPOX on at bedside. No c/o pain,
--- NOTE | 2024-01-04 07:10 | NUR ---
RECIEVED REPORT FROM VERA GARCIA. PATIENT AWAKE IN BED. PATIENT REQUESTS CELL PHONE FROM BEDSIDE TABLE, CELL PHONE PROVIDED. PATIENT DENIES ADDITIONAL NEEDS AT THIS TIME. SEIZURE PADS IN PLACE. CALL LIGHT IN REACH.
--- NOTE | 2024-01-04 07:40 | NUR ---
PT RESTING IN BED. URINAL EMPTIED 300 ML YELLOW URINE. WARM WASH RAG PROVIDED. PT OFFERED SHOWER AND WILL LET US KNOW WHEN HE IS READY TO SHOWER. DID NOT SLEEP WELL PER PT, LIGHTS OFF, DENIES ANY NEEDS AT THIS TIME, CALL LIGHT IN REACH
--- NOTE | 2024-01-04 08:54 | NUR ---
PT RESTING IN BED. BREAKFAST TRAY CLEARED. PT STATES HE IS UNAABLE TO EAT "IT MADE ME NAUSEOUS". DENIES ANY NEEDS, CALL LIGHT IN REACH
--- NOTE | 2024-01-04 09:45 | NUR ---
IN ROOM TO ADMINISTER MEDICATIONS, SEE E-MAR. PATIENT EXPERIENCING 5/10 PAIN WITH SWALLOWING. ENCOURAGED PATIENT TO TAKE MEDICATIONS SLOWLY AND ADMINISTERED THEM ONE BY ONE. PATIENT BECAME NAUSEATED. NO EMESIS PRESENT AT THIS TIME. PATIENT TOLERATED PO MEDICATIONS WELL. PATIENT REQUESTED PRN MEDICATION FOR PAIN. PHARMACY CONTACTED. PATIENT DENIES ADDITIONAL NEEDS AT THIS TIME. SEIZURE PADS IN PLACE, CALL LIGHT IN REACH.
--- NOTE | 2024-01-04 10:00 | NUR ---
PT RESTING IN BED. VITALS AND IS AND OS COMPLETE. REFUSED SHOWER AT THIS TIME, WILL LET US KNOW WHEN READY. DENIES ANY NEEDS AT THIS TIME, CALL LIGHT IN REACH
--- NOTE | 2024-01-04 10:59 | NUR ---
PT RESTING IN BED, MD IN ROOM. CALL LIGHT IN REACH
--- NOTE | 2024-01-04 11:13 | HP ---
[facility] [address], [place] [address] Signed ADMISSION DATE: 01/02/2024 PROBLEM: Presumed esophageal food impaction with hypersalivation. HISTORY OF PRESENT ILLNESS: This 43-year-old man presented to the emergency room with complaints of feeling the esophagus was obstructed. He was evaluated by Dr. Burger, which included chest x-ray showing no acute abnormality. The patient is a somewhat reluctant historian actually, but does say that he was "eating soup," but with further clarification feels that he was choking on "Top Ramen." LABORATORY DATA: Lab studies were obtained showing a white count of 7.7, hematocrit 47.7. Chem profile pending. Coag studies normal with an INR of 0.96. Urinalysis, which is not yet received, and a tox screen for carbamazepine not yet drawn. The patient has had persistent inability to swallow secretions and episodically regurgitating clear saliva into an emesis bag. Quite notably he was seen in the emergency room on November 21, 2023, by [facility], Dr. Spring for similar complaint of food impaction of the esophagus. However, at time of procedure, there was no sign of food impaction, though there was considered to be food matter blocking the pyloric sphincter. Irrigation was undertaken and the scope passed beyond the pylorus into the duodenum. There was no evidence of channel ulcer or other similar problem. There was no true gastric outlet obstruction noted. The patient had been on Carafate as well as PPI medication prior to presentation to the emergency room today but later admitted he had not been taking any medications at all, including his anti seizure med carbamazipine. PAST MEDICAL HISTORY: Noted for seizure disorder absence type as well as gastroesophageal reflux and prior history of cholecystectomy. MEDICATIONS: At presentation on this occasion include carbamazepine 200 mg p.o. b.i.d., duloxetine mg b.i.d., Pepcid 40 mg b.i.d., loratadine 10 mg daily, omeprazole 20 mg b.i.d., and Carafate 1 g p.o. a.c. and HS -- though he subsequently noted he has been on none of them recently. Electronically Signed By: ISMAEL SAHU MD 01/04/24 1113 PATIENT NAME: WILLIAM MAR HISTORY AND PHYSICAL DATE OF : 84 REPORT #: [id number] PHYSICIAN: ISMAEL SAHU MD PCP: NANCY HIGHTOWER MD REPORT IS CONFIDENTIAL AND NOT TO BE RELEASED WITHOUT AUTHORIZATION [facility] [address], [place] [address] Signed SOCIAL HISTORY: The patient is single and lives alone he says. REVIEW OF SYSTEMS: He denies substernal chest pain, but does have some mild epigastric pain. He denies any shortness of breath or chest pain proper. PHYSICAL EXAMINATION: GENERAL: This is a pleasant white man who has a very flat affect. VITAL SIGNS: Temperature at presentation at 1629 hours showed a temperature of 98.8, pulse 121 (now 89), blood pressure 149/77, now 124 systolic and pulse oximetry of 93%. NECK: Trachea is midline. There is no crepitus. He has no hoarseness. CHEST: Shows normal respiratory excursion without tachypnea. ABDOMEN: Was palpated and shows mild epigastric tenderness. EXTREMITIES: Show no clubbing, cyanosis, or edema. LABORATORY DATA: Lab study as previously noted included a normal CBC. Chem profile still pending. A chest x-ray was normal without sign of pneumothorax, pleural effusion or other issue. ASSESSMENT: The patient is considered to have possible food impaction of the distal esophagus; supportive of this presumption is his episodic regurgitation of clear salivary material. It is curious that previous episode of food impaction showed no sign of food impaction, but did show food within the stomach. Perhaps some relaxation with anesthesia allowed it to pass. He has a somewhat blunted affect, which may be in part related to his underlying seizure disorder, which manifests as absence seizure. 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 The risk of bleeding, infection, perforation, need for other indicated procedures and so forth was all reviewed in detail. He understands and agrees to proceed. We will likely perform this procedure under general anesthesia, so as to protect his airway uncertain as to the extent of obstruction. Ismael Sahu MD Electronically Signed By: ISMAEL SAHU MD 01/04/24 1113 PATIENT NAME: WILLIAM MAR HISTORY AND PHYSICAL DATE OF : 84 REPORT #: [id number] PHYSICIAN: ISMAEL SAHU MD PCP: NANCY HIGHTOWER MD REPORT IS CONFIDENTIAL AND NOT TO BE RELEASED WITHOUT AUTHORIZATION [address] [address] Signed /[facility] /[id number] cc: Dr. Tao Hightower MD Copies: NANCY HIGHTOWER MD ~ Electronically Signed By: ISMAEL SAHU MD 01/04/24 1113 PATIENT NAME: WILLIAM MAR HISTORY AND PHYSICAL DATE OF : 84 REPORT #: [id number] PHYSICIAN: ISMAEL SAHU MD PCP: NANCY HIGHTOWER MD REPORT IS CONFIDENTIAL AND NOT TO BE RELEASED WITHOUT AUTHORIZATION
--- NOTE | 2024-01-04 11:13 | OR ---
[facility] [address] [place], [place] [address] Signed DATE OF OPERATION: 01/02/2024 SURGEON: Ismael Sahu MD TIME: 09:15 p.m. PROBLEM: Presumed esophageal obstruction. POSTOPERATIVE DIAGNOSIS: No evidence of actual obstruction. Severe ulcerative changes at 23 cm in esophagus with Lerma's epithelium. PROCEDURE: Esophagogastroduodenoscopy with biopsy. ANESTHESIA: Intravenous sedation with rather general endotracheal, Katie Meléndez CRNA. INDICATIONS: This 43-year-old white man is a patient, who has been seen at [facility] in November of this year with presumed food impaction and obstruction. Upper endoscopy performed at that time by a locum surgeon showed no sign of food impaction of the esophagus, but did show food in the area of the pylorus without associated actual gastric outlet obstruction or ulceration. The patient does have an underlying seizure disorder. He had been prescribed PPI medication as well as Carafate. It is uncertain if he has really been taking it. The patient is a somewhat poor historian. He has an underlying seizure disorder and has a rather flat affect. He did admit that he has not taken his carbamazepine for at least two weeks. It is suspect that, perhaps he has not been taking his other medicines either. He was noted after eating ramen noodles (and a burrito before that) that he has had hypersalivation and feeling rather poorly and feels that he has an obstructive esophagus. His white count is normal and chest x-ray is negative. I have offered upper endoscopy to clear the esophageal obstruction of present. With special note, he has had episodic eructation of nonbilious clear salivary secretion and therefore possible obstructive esophagus does seem likely. FINDINGS: Electronically Signed By: ISMAEL SAHU MD 01/04/24 1113 PATIENT NAME: WILLIAM MAR OPERATIVE REPORT DATE OF : 84 REPORT #: [id number] PHYSICIAN: ISMAEL SAHU MD PCP: NANCY HIGHTOWER MD REPORT IS CONFIDENTIAL AND NOT TO BE RELEASED WITHOUT AUTHORIZATION [facility] [address] [place], [place] [address] Signed There was no sign of esophageal obstruction. There was no food in the esophagus, stomach, or duodenum. CLOtest was equivocal at 15 minutes post procedure. He had a reasonable flap valve. There was no evidence of stricture of the distal esophagus or mid esophagus. However, at approximately 23 cm from the incisors was a markedly ulcerated inflamed area that had underlying Lerma's epithelium most likely. This area was biopsied in multiple areas and although not likely malignant may well have accounted for his recent clinical symptoms. DESCRIPTION OF PROCEDURE: The patient was brought to the endoscopy suite and placed in supine position and given a general endotracheal anesthetic for control of airway. A bite block was placed. An Olympus video upper endoscope was passed in the hypopharynx. The endotracheal tube appeared to be well situated in the trachea. The scope was advanced to the esophagus. Passage quickly through the esophagus showed no sign of obstruction, though there was some salivary pooling in the more proximal esophagus initially. The scope was passed through the GE junction, which was entirely normal into the stomach, which was insufflated with air. Rugal folds were normal. There were a few gastric polyps. The pylorus was normal. Scope was passed through into the duodenum, which was normal. The scope was withdrawn to the antrum and biopsies taken for both LONG and pathologic testing. Retroflexed view was undertaken showing a somewhat effaced flap valve, but no sign of large hiatal hernia. The scope was withdrawn to the distal esophagus. There was no evidence of Lerma's epithelium stricture neoplasm or sign of recent obstruction. Biopsies were obtained there. The scope was withdrawn into the mid esophagus, which was then biopsied to assess for the eosinophilic esophagitis, so clinical signs were lacking. Careful withdrawal of scope to approximately 23 cm from the incisors demonstrated an area of marked inflammatory change, friability and findings consistent with Lerma's epithelium. These areas were multiplely biopsied. The scope was carefully withdrawn and removed and the patient was taken to the recovery room in good condition. CONCLUDING DIAGNOSIS: His clinical symptoms are likely related to proximal (23 cm) ulcerative esophagitis with associated Lerma's epithelium. PLAN: We will assure initiation of Carafate slurry 1 g p.o. q.i.d. and PPI medication daily. A mechanical soft diet would be appropriate as well for the next 48 hours. Follow up in a few weeks would be advisable and consideration for test of cure upper endoscopy as well. Electronically Signed By: ISMAEL SAHU MD 01/04/24 1113 PATIENT NAME: WILLIAM MAR OPERATIVE REPORT DATE OF : 84 REPORT #: [id number] PHYSICIAN: ISMAEL SAHU MD PCP: NANCY HIGHTOWER MD REPORT IS CONFIDENTIAL AND NOT TO BE RELEASED WITHOUT AUTHORIZATION [address] [address] Signed MD SHUBHAM Velarde/[facility] /[id number] cc: Dr. Burger Copies: ~ Electronically Signed By: ISMAEL SAHU MD 01/04/24 1113 PATIENT NAME: WILLIAM MAR OPERATIVE REPORT DATE OF : 84 REPORT #: [id number] PHYSICIAN: ISMAEL SAHU MD PCP: NANCY HIGHTOWER MD REPORT IS CONFIDENTIAL AND NOT TO BE RELEASED WITHOUT AUTHORIZATION
[2024-01-04] MEDS ORDERED: OXYCODONE HCL 5 MG TAB PO PRN (16:45)
[2024-01-04] MEDS ORDERED: ACETAMINOPHEN 500 MG TAB PO PRN (16:45)
--- NOTE | 2024-01-04 17:21 | NUR ---
IN ROOM TO ADMINISTER MEDICATIONS, SEE E-MAR. PATIENT ASSESSMENT COMPLETED. PATIENT STATED 6/10 PAIN IN ABDOMEN AND 2/10 PAIN IN HEAD. CONTACTED PROVIDER. ORDERS PLACED FOR PRN PAIN MEDICATION. PATIENT DENIES ADDITIONAL NEEDS AT THIS TIME. CALL LIGHT IN REACH. SIEZURE PADS IN PLACE.
--- NOTE | 2024-01-04 18:07 | NUR ---
IN TO DO VITALS AND I&O'S. VITALS AND I&O'S DONE AND CHARTED. PATIENT AMBULATED IN HALLWAY, [facility]. PATIENT NOW BACK TO BED. CALL LIGHT IN REACH. NO FURTHER NEEDS AT THIS TIME.
--- NOTE | 2024-01-04 19:55 | NUR ---
AWAKE, ALERT AND ORIENTED, WATCHING TV. ON ROOM AIR, LUNGS CLEAR DIM AT BASES, NO C/O SOB OR COUGH, C/O MILD DISCOMFORT L FLANK, DENIES NEED FOR PAIN MED AT THIS TIME. NO BM TODAY. ON FULL LIQUID DIET, TOLERATING SMALL AMOUNTS, ENCOURAGED TO DRINK SMALL AMOUNTS AND LET NURSE KNOW IF SWALLOWING PROBLEMS, DENIES AT THIS TIME. IVF INFUSING LHAND. MOVES AND REPOSITIONS SELF IN BED. SEIZURE PRECAUTIONS IN PLACE, DENIES S/SX SEIZURE ACTIVITY. FRESH WATER, APPLE AND GRAPE JUICE GIVEN. USED URINAL, VOIDING SLIGHTLY DARK YELLOW URINE.
--- NOTE | 2024-01-04 20:50 | EKG ---
[facility] [address] [facility] [place], [place] [address] Signed Sinus tachycardia Otherwise normal ECG No previous ECGs available Confirmed by Lito Leblanc MD ([id number]) on 01/04/2024 8:50:03 PM Electronically Signed By: LITO LEBLANC DO 01/04/242049 PATIENT NAME: WILLIAM MARRO Electrocardiogram DATE OF : 84 PHYSICIAN: LITO LEBLANC DO REPORT #: [id number] REPORT IS CONFIDENTIAL AND NOT TO BE RELEASED WITHOUT AUTHORIZATION
--- NOTE | 2024-01-04 21:36 | NUR ---
awake, took meds w/o problems, tolerating small sips of fluids and meds. no s/s swallowing problems at this time, no c/o throat pain. used urinal, seizure pads in place, alert and oriented, cooperative
[2024-01-05] VITALS (8 sets, daily range): BP systolic 116–124; BP diastolic 76–88
--- NOTE | 2024-01-05 00:39 | NUR ---
Resting, eyes closed, no s/sx distress, IVF infusing, seizure precautions in place
--- NOTE | 2024-01-05 02:57 | NUR ---
RESTING, EYES CLOSED, IVF INFUSING W/O PROBLEMS. SEIZURE PADS IN PLACE
--- NOTE | 2024-01-05 05:08 | NUR ---
awakens easily, c/o l flank and back pain, medicated with Tylenol 1000mg po. IVF infusing L hand, seizure pads in place. Up to brp, SBA, voided, back to bed, tolerated fair.
--- NOTE | 2024-01-05 06:45 | NUR ---
up to brp, 1pa, stated mild pain relief L flank from Tylenol being given earlier.. IVF infusing w/o problems. tolerating small sips off fluids well. no n/v
--- NOTE | 2024-01-05 07:21 | NUR ---
REPORT FROM JOSE, RN
--- NOTE | 2024-01-05 09:07 | NUR ---
MORNING ASSESSMENT IS COMPLETE, MORNING MEDICATIONS GIVEN WITH PUDDING AND PATIENT SWALLOWED FINE. NO PAIN OR NAUSEA NOTED. AT 0902 PATIENT HAD A SEIZURE: FISTS CLENCHED, DROOLING, SWAYING, AND WOULD NOT RESPOND TO NURSE. THIS LASTED APPROXIMATELY 30 SECONDS AND PATIENT STARTED RESPONDING, INDICATED THAT HE DOES NOT KNOW HOW OFTEN HE HAS SEIZURES. BED RAILS ARE UP, BED ALARM IS ON. PATIENT IS VERY SLEEPY NOW AND IS RESTING ON LEFT SIDE.
--- NOTE | 2024-01-05 09:35 | NUR ---
DR. SAHU IN TO SEE PATIENT.
[2024-01-05 10:29] LABS: ANION GAP 5.4 (7-21); BUN/CREATININE RATIO 5.55 (6.0-28.6); CALCIUM 8.9 mg/dL (8.5-10.1); CARBAMAZEPINE (TEGRETOL) 8.5 ug/mL (4.0-12.0); CARBON DIOXIDE 34 mmol/L (21-32); CHLORIDE 103 mmol/L (98-107); CREATININE, SERUM 0.72 mg/dL (0.70-1.30); GLOMERULAR FILTRATION RATE,EST 118 mL/min (>60); MAGNESIUM 1.7 mg/dL (1.8-2.4); POTASSIUM 3.4 mmol/L (3.5-5.1); UREA NITROGEN 4 mg/dL (7-18)
--- NOTE | 2024-01-05 10:49 | NUR ---
PATIENT UP TO BATHROOM WITH SBA, AND BACK TO BED WITH BED ALARM ON.
--- NOTE | 2024-01-05 11:03 | NUR ---
PATIENT GIVEN CARAFATE PRIOR TO LUNCH. PATIENT DENIES OTHER NEEDS AT THIS TIME.
--- NOTE | 2024-01-05 13:47 | NUR ---
UR CLINICAL REVIEW: 2 MN FOR [facility] INPT CRITERIA MEDICARE OBS TO INPT 01/04/24 @ 1100 ORDER MATCHES REG NO AUTH REQUIRED PER MEDICARE GUIDELINES DISCHARGE TO HOME WHEN STABLE
--- NOTE | 2024-01-05 13:57 | NUR ---
PATIENT GIVEN 1000MG OF TYLENOL AND 10MG OF OXYCODONE FOR 6/10 LEFT SIDE PAIN. NO OTHER NEEDS AT THIS TIME.
--- NOTE | 2024-01-05 14:04 | NUR ---
PATIENT ALERT AND ORIENTED IN BED. RECENT STAY IN HOSPITAL. THIS NURSE PROVIDED MULTIPLE RESOURCES TO PATIENT DURING PREVIOUS STAY REGARDING RESOURCES FOR HOUSING, MEDICATION COST, [employer]. PATIENT STATED IN PREVIOUS STAY HE IS ON WAIT LIST FOR LOW INCOME HOUSING IN [place] AND HE WAS ON A WAIT LIST OF 60 OR MORE PEOPLE. STATES HE HAS NOT YET HEARD ANYTHING FURTHER REGARDING HOUSING. PATIENT DOES HAVE MEDICARE AND MEDICAID TO COVER MEDICATION COSTS, HOWEVER, THIS NURSE ALSO PROVIDED A PRESCRIPTION DISCOUNT CARD FOR [facility] THROUGH [facility] PREVIOUS STAY AND PROVIDED AGAIN TODAY. DISCUSSED OPTIONS FOR HOUSING, FOOD, MEDICATIONS AND TRANSPORTATION AVAILABLE TO PATIENT IN AREA. PHONE NUMBERS PROVIDED FOR [employer]. INFORMED IF HE IS CONTINUING TO HAVE DIFFICULTIES HE ALSO NEEDS TO CONTACT THE [facility] OFFICE AND SPEAK WITH HIS LOOM FIXER APPRENTICE. PATIENT LIVES IN [place]. HE HAS NO DME AT [place]. USES THE BUS FOR PRIMARY TRANSPORTATION. FINANCIAL HARDSHIP, RESOURCES PROVIDED. HE PREFERS TO RETURN TO [facility] BECAUSE HE HAS MORE FRIENDS WHO ARE WILLING TO ASSIST HIM WHEN NEEDED.
--- NOTE | 2024-01-05 15:51 | NUR ---
PATIENT IS RESTING IN BED, DENIES PAIN AT THIS TIME. NO OTHER NEEDS.
--- NOTE | 2024-01-05 17:26 | NUR ---
PATIENT GIVEN CARAFATE TABLET MIXED WITH WATER. PATIENT IS SITTING UP IN BED TO EAT DINNER. NO OTHER NEEDS AT THIS TIME.
--- NOTE | 2024-01-05 20:11 | NUR ---
awake, alert and oriented. On room air, clear lungs dim at bases, no cough. continues to c/o discomfort L arm and L flank, denies need for pain meds. Up to BRP w/o assist. unsteady slow gait, grabbing at al and guarding L flank. Again, he denies need for pain med. Declines to have graduated hat on toilet. "Juvencio afraid it will splash me". "I will let yuo know when I get up". Tolerating full liquids diet well. no c/o swallowing problems or n/v. Seizure precautions in place. , denies s/sx aura or sx of seizure acitivity sice this am. IVF infusing w/o problems LH
--- NOTE | 2024-01-06 | NUR ---
CHECKED ON pt. RESTING IN BED WITH EYES CLOSED, BREATHING UNLABORED. BED ALARM IN PLACE. SEIZURE PAD ON RIGHT SIDE OF BED.
--- NOTE | 2024-01-06 00:44 | NUR ---
THIS RN TO ASSUME CARE. REPORT RECEIVED FROM ENTERPRISE SOFTWARE ENGINEER. PT LYING IN BED RESTING WITH EYES CLOSED. RESPIRATIONS EVEN. CALL LIGHT IN REACH. BED ALARM FOR SAFETY.
--- NOTE | 2024-01-06 03:09 | NUR ---
IV PUMP ALARMING. NEW BAG IVF INFUSING PER ORDER. PT REPORTS LEFT SIDE/ESOPHAGEAL PAIN 08/17. ATTEMPTED TO GIVE PO TYLENOL AFTER BREAKING TABS IN HALF PER PT REQUEST. WITH THE FIRST HALF PT REPORTS TAB "GOT STUCK" WHILE RUBBING THROAT AREA. SIPS OF WATER AND BITES OF PUDDING PROVIDED. PT WITH NO DIFFICULTY SWALLOWING WATER OR PUDDING, REPORTS TAB STILL FEELS STUCK. WARM BROTH PROVIDED. SpO2 100% ON RA. HR 70'S. PT ABLE TO SWALLOW SECRETIONS. HOB ELEVATED. SEIZURE PRECATIONS IN PLACE. BED ALARM FOR SAFETY.
--- NOTE | 2024-01-06 03:45 | NUR ---
PT RESTING WITH EYES CLOSED. AWAKENS EASILY. REPORTS ISSUES RESOLVED. NO NEEDS AT THIS TIME.
[2024-01-06 06:18] VITALS: BP 128/78
--- NOTE | 2024-01-06 06:28 | NUR ---
PT RESTING WITH EYES CLOSED. AWAKENS EASILY. VS AND I&O OBTAINED. SCHEDULED MEDS ADMIN PER EMAR. NO SWALLOWING ISSUES NOTED. NO NEEDS AT THIS TIME. CALL LIGHT IN REACH. BED ALARM FOR SAFETY.
--- NOTE | 2024-01-06 07:58 | NUR ---
RECIEVED SHIFT REPORT. PT IS RESTING IN BED, EYES CLOSED. BREATHING EVEN AND UNLABORED. CALL LIGHT IN REACH.
--- NOTE | 2024-01-06 08:40 | NUR ---
FREDERIC GROSSMAN IN ROOM PUSHED CALL LIGHT STATING PT WAS HAVING A SEIZURE. THIS RN RAN INTO ROOM. PT SITTING IN RECLINER. GRABBED SUCTION TO SUCTION MOUTH OUT. PT BEGAN COMING OUT OF SEIZURE. ABLE TO TELL THIS RN NAME. SLOW TO RESPOND. UNABLE TO VERBILIZE WHERE HE WAS AND WHY HE IS AT THE HOSPITAL. ADELINA CALLED AT 0844- NO ANSWER.
--- NOTE | 2024-01-06 08:44 | NUR ---
PATIENT DID FINE WALKING TO THE CHAIR. SET HIM UP FOR BREAKFAST. WENT TO THE PASS THROUGH IN PATIENT'S ROOM TO GET NEW BED LINENS. TURNED AROUND AND PATIENT WAS HOLDING ON TO HIS MILK AND STARRING I CALLED HIS NAME BUT KNOW RESPONSE THAT IS WHEN I HIT THE ENDBANDER LIGHT. PATIENT WAS HAVING A SEIZURE. WHEN NURSE CAME IN HE WAS COMING OUT OF IT. MAYBE IT LASTED ABOUT 10 MIN.
[2024-01-06] MEDS ORDERED: MAGNESIUM SULFATE 2 GM/50 ML BAG IV ONE (09:00)
[2024-01-06] MEDS ORDERED: LANSOPRAZOLE 30 MG TABDIS PO SCH (09:00)
[2024-01-06 09:05] VITALS: BP 122/87
--- NOTE | 2024-01-06 09:34 | NUR ---
MORNING ASSESSMENT COMPELTE. PT IS UP IN RECLINER. PT IS MORE ALERT AFTER SZ ACTIVITY. PAIN 6/10, TOLERABLE. SUCTION IN REACH. CALL LIGHT IN REACH.
--- NOTE | 2024-01-06 09:59 | NUR ---
0950 - This RN into Mr. Maldonado room with IMM letter. Mr. Maldonado is up in his chair beside the bed. Respirations are even and unlabored, and he answers questions appropriately. Dr. King has not yet been in to see Mr Maldonado today, however, in discussing his discharge, Mr. Maldonado feels that he will be safe to return home upon discharge, and understands that he may be discharged in the next 1 - 2 days. IMM letter explained, Mr. Maldonado signs the letter without hesitation and has no questions for me at this time regarding the IMM letter. A signed copy of the IMM letter is left with Mr. Maldonado.
[2024-01-06 14:07] VITALS: BP 108/72
--- NOTE | 2024-01-06 14:15 | NUR ---
RECTAL TUBE PLACED FOR ENEMA ORDER. TOLERATING WELL.
[2024-01-06 18:00] VITALS: BP 117/73
--- NOTE | 2024-01-06 19:04 | NUR ---
PATIENT TOOK A SHOWER TODAY AND BRUSHED HIS TEETH.
--- NOTE | 2024-01-06 19:26 | NUR ---
REPORT RECEIVED FROM DAY SHIFT RN. PT LYING IN BED ALERT AND ORIENTED. DENIES NEEDS. WHITE BOARD UPDATED. CALL LIGHT IN REACH. BED ALARM FOR SAFETY.
[2024-01-06 20:07] VITALS: BP 109/68
[2024-01-06 20:10] VITALS: BP 109/68
--- NOTE | 2024-01-06 21:06 | NUR ---
EVENING ASSESSMENT COMPLETE. SCHEDULED MEDS ADMIN PER EMAR CRUSHED IN PUDDING. NO SWALLOWING ISSUES NOTED. PT REPORTS LEFT SIDE PAIN 08/17. PRN FOR PAIN ADMIN. UP TO AMB X 1 LAP AROUND NURSING UNIT WITH FWW AND SBA. GAIT SLOW BUT STEADY. BACK TO ROOM. PT USED BATHROOM AND BACK TO BED. SEIZURE PADS AND BED ALARM IN PLACE. PRINTED AND VERBAL EDUCATION PROVIDED TO PT ON DIET AND CRUSHING/TAKING MEDS. PT DID NOT ENGAGE WITH CONVERSATION. DENIES FURTHER NEEDS. CALL LIGHT IN REACH.
--- NOTE | 2024-01-07 00:14 | NUR ---
PT RESTING IN BED WITH EYES CLOSED. RESPIRATIONS EVEN. CALL LIGHT IN REACH. BED ALARM FOR SAFETY.
--- NOTE | 2024-01-07 02:11 | NUR ---
PT IN BED RESTING WITH EYES CLOSED. HOB ELEVATED. RESPIRATIONS EVEN. CALL LIGHT IN REACH. BED ALARM FOR SAFETY.
--- NOTE | 2024-01-07 04:07 | NUR ---
PT LYING IN BED ON LEFT SIDE RESTING WITH EYES CLOSED. RESPIRATIONS EVEN. BED ALARM IN PLACE. CALL LIGHT IN REACH.
[2024-01-07 06:02] VITALS: BP 107/69
--- NOTE | 2024-01-07 07:18 | NUR ---
REPORT RECEIVED FROM VERA DORADO. PT RESTING IN BED, OPENS EYES WHEN ENTERING ROOM. PT STATES HE IS HAVING PAIN, GRIPPING THROAT WHEN SWALLOWING AND HOLDING L SIDE/STOMACH. PRN PAIN MEDICATION ADMINISTERED PER MAR AND HOT PACK APPLIED. PT HAS RADHA WITH HIM IN BED FOR CLEARING SECRETIONS. CALL LIGHT IN REACH, NO OTHER NEEDS AT THIS TIME.
[2024-01-07] MEDS ORDERED: PANTOPRAZOLE SODIUM 40 MG TABEC PO SCH ×2 (07:30→09:00)
[2024-01-07 09:52] VITALS: BP 120/76
--- NOTE | 2024-01-07 10:10 | NUR ---
THIS RN IN ROOM WITH ADELINA. PT IS AWAKE IN BED. DISCUSSING OPTIONS WITH PT ON POC. PT MINIMALLY SPEAKING WORDS. ENCOURAGED TO STAY MOTIVATED, DRINK WATER, WALK THE HALLS. PT EDUCATED MORE ON FULL LIQUID DIET, CRUSHING MEDICATIONS. UNABLE TO ASSESS IF PATIENT IS UNDERSTANDING. PT NODS IN RESPONSE.
[2024-01-07 10:39] LABS: BASOPHILS 0.3 % (0-2); EOSINOPHILS 0.3 % (0-6); HEMATOCRIT 48.2 % (35.0-50.0); HEMOGLOBIN 16.8 g/dL (12.0-18.0); LYMPHOCYTES 19.2 % (24-44); MCH 31.6 (27-36); MCHC 34.8 g/dl (30-36); MCV 90.9 fl (81-99); MONOCYTES 6.7 % (0-12); NEUTROPHILS 73.5 % (39-80); PLATELET COUNT 283 K/uL (140-440); RDW 13.5 (10.5-15.0)
[2024-01-07 10:54] LABS: ALBUMIN 3.7 g/dL (3.4-5.0); ALBUMIN/GLOBULIN RATIO 0.95 (1.1-2.4); ANION GAP 11.5 (7-21); BILIRUBIN, TOTAL 0.5 ng/dL (0.2-1.0); BUN/CREATININE RATIO 8.33 (6.0-28.6); CALCIUM 9.1 mg/dL (8.5-10.1); CREATININE, SERUM 0.84 mg/dL (0.70-1.30); POTASSIUM 3.5 mmol/L (3.5-5.1); PROTEIN, TOTAL 7.6 g/dL (6.4-8.2)
[2024-01-07 13:38] VITALS: BP 110/75
--- NOTE | 2024-01-07 15:06 | NUR ---
PATIENT WALKED WITH WALKER I WAS BY HIS SIDE. WHILE JAYY FOLLOWED WITH WHEELCHAIR. DID ONE LAP AROUND MED SURG.
--- NOTE | 2024-01-07 16:39 | NUR ---
PATIENT WALKED WITH HIS WALKER I BY HIS SIDE AND LAN FOLLOWED WITH WHEELCHAIR. PATIENT WALKED TWO LAPS AROUND MED SURG.
[2024-01-07 18:08] VITALS: BP 110/73
--- NOTE | 2024-01-07 19:15 | NUR ---
pt RESTING IN THE BED. REPORT RECEIVED FROM REED GAMEZ. BOARD UPDATED. pt DENIES ANY NEEDS AT THIS TIME. CALL LIGHT WITHIN REACH.
[2024-01-07 20:44] VITALS: BP 105/69
--- NOTE | 2024-01-07 20:45 | NUR ---
ASSESSMENT AND VITAL SIGNS ONE. SCHEDULED MEDICATIONS ADMINISTERED PER ORDER. pt DENIES ANY NEEDS AT THIS TIME. pt ABLE TO SWALLOW HIS PILLS WITH PUDDING. CARAFATE MIXED IN 30ML WATER PER ORDER. pt DENIES ANY NEEDS AT THIS TIME. IV ASSESSED, WNL. CALL LIGHT WITHIN REACH.
[2024-01-07 20:48] VITALS: BP 105/69
--- NOTE | 2024-01-07 23:00 | NUR ---
pt RESTING IN THE BED WITH EYES CLOSED. RR EVEN AND UNLABORED. CALL LIGHT WITHIN REACH.
[2024-01-08] VITALS (7 sets, daily range): BP systolic 107–129; BP diastolic 75–79
--- NOTE | 2024-01-08 01:43 | NUR ---
pt RESTING IN THE BED WITH EYES CLOSED. RR EVEN AND UNLABORED. CALL LIGHT WITHIN REACH.
--- NOTE | 2024-01-08 03:04 | NUR ---
pt RESTING IN THE BED WITH EYES CLOSED. RR EVEN AND UNLABORED. CALL LIGHT WITHIN REACH.
--- NOTE | 2024-01-08 05:00 | NUR ---
pt RESTING IN THE BED. pt TOLD HE HAD TO PEE SOON BACAUSE HE HAD NOT PEED THROUGH OUT THE NIGHT. THIS RN HANDED pt URINAL TO HAVE pt TRY AND PEE. pt STATES HE DOESNT FEEL LIKE HAS TO GO OR COULD GO. THIS RN TOLD THE pt THAT I WOULD CHECK ON THE pt IN ABOUT AN HOUR TO SEE IF HE COULD PEE. pt DENIES ANY OTHER NEEDS AT THIS TIME. CALL LIGHT WITHIN REACH.
[2024-01-08] MEDS ORDERED: LACTATED RINGER'S 1,000 ML IV ONE (07:15)
--- NOTE | 2024-01-08 07:25 | NUR ---
RECEIVED REPORT FROM VERA MEEKS. PT AWAKE IN BED, STATES NO NEEDS AT THIS TIME, CALL LIGHT WITHIN REACH, SEIZURE PADS IN PLACE FOR SAFETY.
--- NOTE | 2024-01-08 08:18 | NUR ---
PT USES CALL LIGHT, IV PUMP ALARMING, FLUID BOLUS COMPLETE. IV SALINE LOCKED. PT STATES NO NEEDS AT THIS TIME, CALL LIGHT WITHIN REACH.
--- NOTE | 2024-01-08 08:50 | NUR ---
PATIENT IN BED AT THIS TIME. CALL LIGHT WITHIN REACH, NO FURTHER NEEDS AT THIS TIME.
[2024-01-08] MEDS ORDERED: NITROGLYCERIN0.4 MG SL (14:01)
[2024-01-08] MEDS ORDERED: ACETAMINOPHEN500 MG PO (14:01)
[2024-01-08] MEDS ORDERED: CARBAMAZEPINE200 MG PO (14:02)
[2024-01-08] MEDS ORDERED: SUCRALFATE1 GM PO (14:03)
[2024-01-08] MEDS ORDERED: PANTOPRAZOLE SO40 MG PO (14:03)
--- NOTE | 2024-01-08 15:34 | NUR ---
PATIENT IN BED AT THIS TIME. CALL LIGHT WITHIN REACH, NO FURTHER NEEDS AT THIS TIME.
--- NOTE | 2024-01-08 15:40 | NUR ---
PT DRESSES SELF IN OWN CLOTHES. IV DC'D WNL. VSS. PT EDUCATION AND DC PACKET GIVEN, PT STATES ALL QUESTIONS HAVE BEEN ANSWERED. PT BELONGINGS ALL LEAVING WITH PT UPON DC. PT AMBULATES TO WHEELCHAIR, WHEELED TO FRONT OF BUILDING BY NURSING PERSONEL.
--- NOTE | 2024-01-09 12:25 | DS ---
[facility] [address] [place], [place] [address] Signed ADMISSION DATE: 01/04/2024 DISCHARGE DATE: 01/08/2024 REASON FOR ADMISSION: Presumed food impaction. HISTORY OF PRESENT ILLNESS: This 43-year-old man presented to the emergency room with complaints of feeling esophagus was obstructed. He was evaluated by Dr. Burger . Evaluation included chest x-ray showing no acute abnormality. The patient was a reluctant historian saying that he was eating soup, but ultimately noted that he had been having Top Ramen noodles. He felt obstruction in his esophagus and presented to the emergency room with severe pain as well as hypersalivation and regurgitation. Evaluation included not only the chest x-ray but clinical examination showing no crepitus. The white count of 7.7, hematocrit 47.7. Chem profile essentially normal. Of special note, he presented in November to the emergency room where he was evaluated by Dr. Weaver with a similar complaint and upper endoscopy at that time showed no sign of esophageal food obstruction, but did show some pre-pyloric food which was thought to be "obstructive" but which was easily passed forward. The patient has been prescribed Protonix, Carafate, and ongoing use of carbamazepine (Tegretol) for his seizure disorder, but he has not been taking these medications for an indeterminate amount of time. He is admitted for further evaluation and care. PERTINENT PHYSICAL EXAMINATION: GENERAL: Showed a pleasant male with a very flat affect, poorly communicative. VITAL SIGNS: Temperature 98.8, pulse 121 down to 89, blood pressure 149/77, and pulse oximetry of 93% on room air. NECK: Trachea is midline. There is no crepitus. He had no hoarseness. CHEST: Clear. HEART: Regular. HOSPITAL COURSE: The patient went directly from the emergency room to the endoscopy suite with a presumption of food impaction. Founded upper endoscopy at approximately 9:15 p.m. was a clear esophagus and stomach without sign of obstruction, but with a significant ulcerative lesion at approximately 23 cm from the incisors. This was markedly ulcerated and inflamed and possibly with underlying Lerma's epithelium. The area was biopsied. Postoperatively, he had significant odynophagia that persisted even with liquid intake. He was maintained on IV Protonix and begun on Carafate slurry. As it was late in the Electronically Signed By: ISMAEL SAHU MD 01/09/24 1225 PATIENT NAME: WILLIAM MAR DISCHARGE SUMMARY DATE OF : 84 REPORT #: [id number] PHYSICIAN: ISMAEL SAHU MD PCP: NANCY HIGHTOWER MD REPORT IS CONFIDENTIAL AND NOT TO BE RELEASED WITHOUT AUTHORIZATION [facility] [address] [place], [place] [address] Signed evening, he was kept overnight, but importantly, he had significant enough discomfort with the ongoing process of ulcerative esophagitis that he was unable to eat in any reliable way and was maintained on IV fluids. A Tegretol level was obtained, which was found to be absent and it was clear that he had not been taking his medications for quite some time. He was restarted on carbamazepine tablets as well as Protonix orally and IV administered and Carafate slurry. The patient has slow but sure recovery of his symptomatic odynophagia. Repeat lab studies showed no sign of elevated white count or anything to suggest progressive problem. It is notable that his pain was severe enough on his 1st day of hospitalization that he was evaluated for possible coronary syndrome, which was negative. Specifically, his troponin was normal and EKG showed no sign of ischemic changes in any way. By time of discharge, he is tolerating clear liquids and full liquids, though still somewhat uncomfortable. He is taking his medications as prescribed and appears to be improving. During the course of hospitalization, he had two episodes suggestive of short lived seizure. A Tegretol level was obtained which was found to be therapeutic. The patient is discharged to home anticipating a clear liquid and ultimately full liquid diet as tolerated. I will be seeing him back in the office in four weeks or so. DISCHARGE MEDICATIONS: Will include: 1. Nitroglycerin 0.4 mg sublingual q. 5 minutes as needed for severe spasm pain, dispense #12, refill 1. 2. Tylenol plain 1000 mg p.o. q.6 hours as needed for pain, #60. 3. Tegretol (carbamazepine) 200 mg b.i.d. #60 refill 3. 4. Carafate 1 g dissolved in water q.i.d. on empty stomach. 5. Pantoprazole 40 mg p.o. daily, #30, refill 4. He will continue his usual medications of duloxetine 30 mg p.o. b.i.d., loratadine 10 mg as needed for allergies. He will discontinue famotidine which he had been on previously. DISCHARGE DIAGNOSES: 1. Odynophagia and perception of esophageal obstruction; upper endoscopy confirming no sign of obstruction, but rather severe ulcerative lesion 23 cm from incisors. 2. Underlying seizure disorder on Tegretol, not recently compliant with medication. 3. Anxiety disorder. 4. Dehydration. Electronically Signed By: ISMAEL SAHU MD 01/09/24 2653 PATIENT NAME: WILLIAM MAR RECORD #: [id number] DISCHARGE SUMMARY DATE OF : [birth year] REPORT #: [id number] PHYSICIAN: ISMAEL SAHU MD PCP: NANCY HIGHTOWER MD REPORT IS CONFIDENTIAL AND NOT TO BE RELEASED WITHOUT AUTHORIZATION [address] [place], [place] [address] Signed MD SHUBHAM Velarde/BONG /[id number] cc: MD Dr. Tao Rosales Copies: NANCY HIGHTOWER MD ~ Electronically Signed By: ISMAEL SAHU MD 01/09/24 1225 PATIENT NAME: WILLIAM MAR DISCHARGE SUMMARY DATE OF : 84 REPORT #: [id number] PHYSICIAN: ISMAEL SAHU MD PCP: NANCY HIGHTOWER MD REPORT IS CONFIDENTIAL AND NOT TO BE RELEASED WITHOUT AUTHORIZATION
--- NOTE | 2024-01-09 16:49 | PATH ---
[facility] [address] [facility] [place], [place] [address] Signed SPECIMEN(S): A ANTRUM/PYLORUS BIOPSY SPECIMEN(S): B LOWER ESOPHAGEAL BIOPSY SPECIMEN(S): C MIDDLE ESOPHAGEAL BIOPSY SPECIMEN(S): D ESOPHAGEAL BIOPSY AT 23 CM SPECIMEN SOURCE: A. ANTRUM/PYLORUS BIOPSY B. LOWER ESOPHAGEAL BIOPSY C. MIDDLE ESOPHAGEAL BIOPSY D. ESOPHAGEAL BIOPSY AT 23 CM CLINICAL HISTORY: Gastric polyps. Postop: Severe * *. FINAL PATHOLOGIC DIAGNOSIS: A. Antrum/pylorus, biopsy: - Benign gastric mucosa with focal slight chronic inflammation. - Negative for evidence of Helicobacter organisms on routine HE stained sections. B. Lower esophageal biopsy: - Gastric mucosa with specialized intestinal (goblet cell) metaplasia, negative for dysplasia. C. Mid esophageal biopsy: - Gastric glandular mucosa with specialized intestinal (goblet cell) metaplasia, negative for definite dysplasia. D. Esophageal biopsy at 23 cm: - Esophageal and gastric mucosa with specialized intestinal (goblet cell) metaplasia. - Esophageal and glandular epithelium has mild atypical features, favor reactive. COMMENT: As part of [facility] Quality Improvement Program, this case was reviewed by another member of our pathology staff. JVR:JAMES:cml MICROSCOPIC EXAMINATION: Histologic sections of all submitted blocks are examined by light microscopy. These findings, together with the gross examination, support the pathologic diagnosis. PATIENT NAME: WILLIAM MAR PATHOLOGY DATE OF : [birth year] REPORT #: [id number] PHYSICIAN: [facility] PCP: NANCY HIGHTOWER MD REPORT IS CONFIDENTIAL AND NOT TO BE RELEASED WITHOUT AUTHORIZATION [facility] [address] [place], [place] [address] Signed GROSS DESCRIPTION: A. The specimen, labeled and designated "Mar, antrum biopsy," is received in formalin and consists of one baum soft tissue fragment, 0.8 cm. Entirely submitted in (A1). B. The specimen, labeled and designated "Mar, lower esophagus biopsy," is received in formalin and consists of one baum soft tissue fragment, 0.2 cm. Entirely submitted in (B1). C. The specimen, labeled and designated "Mar, middle esophagus biopsy," is received in formalin and consists of one baum soft tissue fragment, 0.2 cm. Entirely submitted in (C1). D. The specimen, labeled and designated "Mar, esophagus biopsy at 23 cm possible Lerma's," is received in formalin and consists of seven baum soft tissue fragments, ranging from 0.1 to 0.2 cm. Entirely submitted in (D1). JS (under the direct supervision of a pathologist) The Gross Description was prepared using a voice recognition system. The report was reviewed for accuracy; however, sound-alike word errors, addition and/or deletions may occur. If there is any question about this report, please contact Client Services. PERFORMING LABORATORY: Technical component was performed by [facility], [address] [place] [id number] (CLIA# [id number]). Professional interpretation was performed by [facility] - [facility], [address] [place] [id number] (CLIA#: [id number]). Diagnostician: Miguelangel Love MD Pathologist Electronically Signed 01/09/2024 Copies: ~ PATIENT NAME: WILLIAM MAR PATHOLOGY DATE OF : [birth year] REPORT #: [id number] PHYSICIAN: [facility] PCP: NANCY HIGHTOWER MD REPORT IS CONFIDENTIAL AND NOT TO BE RELEASED WITHOUT AUTHORIZATION
== END 2024-01-08 15:34 | disposition home or self-care (01) | DRG 382 ==
LOC: ED 18:28 → MS 18:29
PROVIDERS: Internal Medicine; ADMIT Surgery; ATTEND Surgery
PROC: 0DB78ZX Excision of Stomach, Pylorus, Via Natural or Artificial Opening Endoscopic, Diagnostic (ICD-10-PCS; 2024-01-02)
PROC: 0DB28ZX Excision of Middle Esophagus, Via Natural or Artificial Opening Endoscopic, Diagnostic (ICD-10-PCS; 2024-01-02)
PROC: 0DB38ZX Excision of Lower Esophagus, Via Natural or Artificial Opening Endoscopic, Diagnostic (ICD-10-PCS; principal; 2024-01-02 20:25)
DX: K22.10 Ulcer of esophagus without bleeding (principal); F41.9 Anxiety disorder, unspecified; E86.0 Dehydration; G40.909 Epilepsy, unspecified, not intractable, without status epilepticus; Z88.8 Allergy status to other drugs, medicaments and biological substances; Z88.5 Allergy status to narcotic agent; Z79.899 Other long term (current) drug therapy; Z90.49 Acquired absence of other specified parts of digestive tract
CPT/HCPCS: 00731; 36415; 71046; 80048; 80053; 80156; 83735; 84443; 84484; 85025; 85610; 85730; 88305; 93005; 93010; 94760; 94762; 96374; 96375; 96376; 99285-25; A9270; G0378; J1100; J2003; J2270; J2470; J2704; J3010; J3475; J3490; J7121

== ENCOUNTER 2024-03-20 18:27 | Day surgery (SDC) | payer MEDICARE, OTHER ==
[~2024-03-20] VITALS: Ht 175.3 cm; Wt 89.7 kg
[~2024-03-20 18:27] MED LIST changes: +ACETAMINOPHEN500 MG PO; +CARBAMAZEPINE200 M3 PO; +CARBAMAZEPINE200 MG PO; +NITROGLYCERIN0.4 MG SL; +PANTOPRAZOLE SO40 MG PO; +SUCRALFATE1 GM PO
--- OUTSIDE RECORDS SUMMARY | 2024-03-20 18:34 | XMS ---
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 PHONE: [phone] -Michel- Dentist: Pin Drafting Machine Operator [facility] PHONE: [phone] MICHEL PRIMARY Clinic/Center: Primary Care [facility] PHONE: [phone] KAELYN CHOI Nurse Practitioner Current PHONE: Unknown Quin has no Care Guidelines for this patient. Damian VISIT COUNT (12 MO.) 7 ABENA Mejía TOTAL 7 NOTE: Visits indicate total known visits. ED/UCC VISIT TRACKING (12 MO.) 03/20/2024 18:27 [facility] [place] TYPE: Emergency COMPLAINT: - CHOKING 01/02/2024 18:28 [facility] [place]: Emergency COMPLAINT: - CHOKING 11/20/2023 20:52 [facility] [place] TYPE: Emergency COMPLAINT: - SWALLOWING ISSUE 10/16/2023 13:21 [facility] [place] TYPE: Emergency COMPLAINT: - SEIZURE DIAGNOSES: - Allergy status to narcotic agent - Allergy status to other antibiotic agents - Other terminal make up operator (current) drug therapy - Unspecified convulsions 10/15/2023 13:48 [facility] [place] [place] TYPE: Emergency COMPLAINT: - CHOCKING 10/05/2023 11:53 [facility] [place] TYPE: Emergency COMPLAINT: - SEIZURE DIAGNOSES: - Allergy status to narcotic agent - Epilepsy, unspecified, not intractable, without status epilepticus - Other terminal make up operator (current) drug therapy - Unspecified convulsions 06/05/2023 [...] not intractable, without status epilepticus - Other terminal make up operator (current) drug therapy - Pain in right knee - Pain in right shoulder - Patient's other noncompliance with medication regimen for other reason INPATIENT VISIT TRACKING (12 MO.) 01/05/2024 07:28 [facility] [place] TYPE: Medical Surgical COMPLAINT: - ESOPHAGEAL FOOD IMPACTION DIAGNOSES: - Acquired absence of other specified parts of digestive tract - Acquired absence of other specified parts of digestive tract - Allergy status to narcotic agent - Allergy status to narcotic agent - Allergy status to other drugs, medicaments and biological substances - Allergy status to other drugs, medicaments and biological substances - Anxiety disorder, unspecified - Anxiety disorder, unspecified - Dehydration - Dehydration - Epilepsy, unspecified, not intractable, without status epilepticus - Epilepsy, unspecified, not intractable, without status epilepticus - Esophageal obstruction - Other terminal make up operator (current) drug therapy - Other terminal make up operator (current) drug therapy - Ulcer of esophagus without bleeding - Ulcer of esophagus without bleeding 10/15/2023 13:[address] [facility] [place] TYPE: Observation COMPLAINT: - ASPIRATION PNEUMONIA DIAGNOSES: - Allergy status to narcotic agent - Allergy status to other antibiotic agents - Other terminal make up operator (current) drug therapy - Pneumonitis due to inhalation of food and vomit - Unspecified convulsions [email or web address]
[2024-03-20] MEDS ORDERED: GLUCAGON,HUMAN RECOMBINANT 1 MG/ML VIAL IV ONE (19:15)
[2024-03-20 21:09] LABS: HEMATOCRIT 50.9 % (35.0-50.0); HEMOGLOBIN 17.3 g/dL (12.0-18.0); PLATELET COUNT 310 K/uL (140-440); RDW 13.6 (10.5-15.0)
[2024-03-20 21:16] LABS: BASOPHILS 0.6 % (0-2); EOSINOPHILS 1.6 % (0-6); MCH 31.2 (27-36); MCV 91.7 fl (81-99); MONOCYTES 9.5 % (0-12); NEUTROPHILS 57.3 % (39-80); RBC 5.55 M/ul (4.3-5.7)
[2024-03-20 21:24] LABS: ALBUMIN 3.7 g/dL (3.4-5.0); ALBUMIN/GLOBULIN RATIO 0.88 (1.1-2.4); ANION GAP 12.9 (7-21); BILIRUBIN, TOTAL 0.2 ng/dL (0.2-1.0); BUN/CREATININE RATIO 21.27 (6.0-28.6); CALCIUM 8.3 mg/dL (8.5-10.1); CREATININE, SERUM 0.94 mg/dL (0.70-1.30); POTASSIUM 3.9 mmol/L (3.5-5.1); PROTEIN, TOTAL 7.9 g/dL (6.4-8.2)
[2024-03-20] MEDS ORDERED: propofoL 200 MG/20 ML VIAL ONE (22:14)
[2024-03-20] MEDS ORDERED: SUCCINYLCHOLINE IN 0.9% NACL 200 MG/10 ML SYRINGE ONE (22:14)
[2024-03-20] MEDS ORDERED: fentaNYL citrate 100 MCG/2 ML VIAL ONE (22:14)
[2024-03-20] MEDS ORDERED: DEXAMETHASONE SOD PHOS 4 MG/ML VIAL ONE (22:14)
[2024-03-20] MEDS ORDERED: ROCURONIUM BROMIDE 50 MG/5 ML SYR ONE (22:14)
[2024-03-20] MEDS ORDERED: LIDOCAINE HCL 2% 5 ML SDV ONE (22:14)
[2024-03-20] MEDS ORDERED: ondansetron HCL 4 MG/2 ML VIAL ONE (22:14)
--- NOTE | 2024-03-20 22:42 | CONS ---
[facility] [address] [place], [place] [address] Signed DATE OF CONSULTATION: 03/20/2024 CHIEF COMPLAINT: Esophageal foreign body. HISTORY OF PRESENT ILLNESS: Dereck is a 44-year-old gentleman who tells me that he is disabled from his learning disability. He is not able to drive. He lives alone here in [place], [place] in a duplex. He said he goes all the way up to [place], [place] because of his carbamazepine prescriptions. He told me initially his family was in the [facility] and later he said it was [place]. He came in November and again in December with concerns that he had esophageal foreign body. Apparently, the locum surgeon took care of him in November and Dr. King took care of him in December. There were no foreign bodies in the esophagus. 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 He has been advised to take the Protonix and the sucralfate, which apparently he has been doing. Earlier tonight, he was trying to eat a chicken nugget and he is quite convinced it is stuck in his esophagus. He has come to emergency room for evaluation. He was given glucagon without success. A CT scan of his neck was performed, which of course does not show a foreign body. I have been asked to see him here in the emergency room as a local general surgeon on-call. PAST MEDICAL HISTORY: Includes his seizures, the Lerma's esophagus and his learning disabilities. PAST SURGICAL HISTORY: Includes a cholecystectomy and upper endoscopy in November and in December 2023 revealing no foreign bodies in the esophagus, but he did have Lerma's esophagus without dysplasia on biopsies and had some ulceration in the esophagus. SOCIAL HISTORY: He does not smoke or drink, but does smoke marijuana every day. He is single and disabled. He does not drive. He lives alone in a duplex here in [place], [place]. He prefers the [facility]. Asmita Trujillo is his significant other at [phone] Dr[address] Mitra Hightower is his doctor apparently in [place], [place]. FAMILY HISTORY: None. REVIEW OF SYSTEMS: He had 10 systems reviewed and there were no new findings. MEDICATIONS: 1. Contrast (iopamidol). Electronically Signed By: BRITTANEY PERALES MD 03/20/24 2242 PATIENT NAME: DERECK MAR CONSULTATION DATE OF : 84 REPORT #: [id number] PHYSICIAN: BRITTANEY PERALES MD PCP: MITRA HIGHTOWER MD REPORT IS CONFIDENTIAL AND NOT TO BE RELEASED WITHOUT AUTHORIZATION [facility] [address] [place], [place] [address] Signed 2. Hydrocodone. 3. Antibiotics lead to yeast infections. 4. Nitroglycerin p.r.n. 5. Tylenol. 6. Carbamazepine. 7. Sucralfate. 8. Protonix. 9. Duloxetine. 10. Claritin. PHYSICAL EXAMINATION: VITAL SIGNS: Blood pressure is 117/85, his heart rate 76, his respiratory rate 16, his temperature is 98.5. He is 95% on room air. He is 5 feet 9 inches tall at 94 kg with a body mass index of 30. GENERAL: Dereck is a 44-year-old gentleman lying supine semi-recumbent in his ER bed. He is alert, awake and interactive. He has no increased work of breathing. He is able to control his saliva throughout the conversation. He seems to think there is esophageal foreign body high in the proximal esophagus. LUNGS: Clear to auscultation. HEART: Regular rate and rhythm without murmurs. ABDOMEN: Mildly protuberant, but benign. LABORATORY DATA: Pending. RADIOGRAPHIC STUDIES: CT scan of his neck was unremarkable. ASSESSMENT AND PLAN: Dereck is a 44-year-old gentleman, concerned about an esophageal foreign body namely a chicken nugget. We are going to be taking him to the endoscopy suite here shortly for upper endoscopy and removal of the foreign body. We could certainly repeat some x-rays of the esophagus if it is not overly inflamed. He understands there is risk including, but not limited to gas bloating, crampy abdominal pain, bleeding, perforation requiring surgery, and missed diagnosis. He told me there is no need to take him home tonight. He may have to stay the night and go home in the morning. He has expressed understanding, agrees above plan. Brittaney Perales MD Electronically Signed By: BRITTANEY PERALES MD 03/20/24 2242 PATIENT NAME: DERECK MAR CONSULTATION DATE OF : 84 REPORT #: [id number] PHYSICIAN: BRITTANEY PERALES MD PCP: MITRA HIGHTOWER MD REPORT IS CONFIDENTIAL AND NOT TO BE RELEASED WITHOUT AUTHORIZATION [address] [address] Signed ALB/MODL /[id number] cc: MD Mitra Almaraz MD Patient chart Copies: BRITTANEY PERALES MD, ELIZABETH CAROL MD ~ Electronically Signed By: BRITTANEY PERALES MD 03/20/24 2242 PATIENT NAME: DERECK MAR PEDRO CONSULTATION DATE OF : 84 REPORT #: [id number] PHYSICIAN: BRITTANEY PERALES MD PCP: MITRA HIGHTOWER MD REPORT IS CONFIDENTIAL AND NOT TO BE RELEASED WITHOUT AUTHORIZATION
--- NOTE | 2024-03-20 22:58 | NUR ---
03/20/242257 SANG TIERNEY 2242 PT ARRIVED TO PACU VIA STREACHER, PT HAS NATURAL AIRWAY IN PLACE WITH OXYGEN MASK WITH 6L OF OXYGEN. PT BREATHING EQUAL AND UNLABORED. REPORT TAKEN FROM ANYA SINCLAIR. PT RESTING IN SEMI FOWLERS. VITALS TAKEN. IV ASSESED. PT NON RESPONSIVE TO STIMULI. 2251 PT RESPONSIVE TO STIMULI, PT REMOVED FROM OXYGEN. O2 SAT STAYING ABOVE 90% ON RA. PT REPORTS A SLIGHT PAIN IN HIS THROAT AT THIS TIME. PT REPORTS NO NAUSEA. 2257 PT SPITS UP SEROSANGINOUS SALIVA. PT REPORTS NO NAUSEA.
[2024-03-20] MEDS ORDERED: ondansetron HCL 4 MG/2 ML VIAL IV PRN (23:00)
[2024-03-20] MEDS ORDERED: ACETAMINOPHEN 325 MG TAB PO PRN (23:00)
[2024-03-20] MEDS ORDERED: PROCHLORPERAZINE EDISYLATE 10 MG/2 ML VIAL IV PRN (23:00)
[2024-03-20] MEDS ORDERED: DEXTROSE 5% - LACTATED RINGERS 1,000 ML IV SCH (23:00)
[2024-03-20 23:20] VITALS: BP 110/77
--- NOTE | 2024-03-21 00:03 | NUR ---
Patient to the medical floor. Patient is alert and oriented x3. Patient has an intermit dry cough, airway is patent, respirations non labored. Patient's vital signs are stable, afebrile. HOB elevated. IV patent, fluids infusing per order. Call light within reach.
[2024-03-21 00:13] VITALS: BP 120/80
[2024-03-21 01:56] VITALS: BP 113/73
--- NOTE | 2024-03-21 02:31 | OR ---
[facility] [address] [place], [place] [address] Signed DATE OF OPERATION: 03/20/2024 SURGEON: Brittaney Perales MD PREOPERATIVE DIAGNOSIS: Esophageal foreign body (chicken nugget). POSTOPERATIVE DIAGNOSES: 1. No foreign body. 2. Lerma's esophagus. 3. Gastroesophageal junction at 23-25 cm. 4. Mild diffuse gastritis. 5. Mild distal esophagitis. PROCEDURE: EGD with CLOtest and biopsies of the antrum and GE junction. ESTIMATED BLOOD LOSS: None. INDICATIONS: Dereck is a 44-year-old gentleman who tells me he has a learning disability. Therefore, he has been placed on disability. He cannot drive. He does not smoke or drink, but he likes to use marijuana every night. At first, he told me his family was from the [facility], then later he said [place]. Apparently he came to [place], [place] to be with his girlfriend. They are no longer together. He said Dr. Mitra Roland is his primary care provider up in [place], [place]. He came to our hospital in November 2023 for the exact same complaints of a sensation of esophageal foreign body. The locum surgeon did not find any foreign body. He came back in December with the same complaints and Dr. King again did not find any foreign body in the esophagus. He did have Lerma's esophagus, but no dysplasia on biopsies. He did have some ulcerations with esophagitis and some mild gastritis. He comes the night concerned that he has a chicken nugget stuck in his throat. The ER doctor gave him some glucagon and that made no difference. A CT scan of the neck was ordered by the ER physician and it was unremarkable as well. I have been asked to see him in the emergency room as a local general surgeon on-call. Dereck was able to control secretions throughout the conversation. Nevertheless, he was quite convinced that he had chicken in his throat. I explained to Dereck that we have to take him to the endoscopy suite under general endotracheal tube anesthesia and passed the gastroscope to make sure there was nothing in his esophagus. He understands the nature of an upper endoscopy. There is risk Electronically Signed By: BRITTANEY PERALES MD 03/21/24 0231 PATIENT NAME: DERECK MAR OPERATIVE REPORT DATE OF : 84 REPORT #: [id number] PHYSICIAN: BRITTANEY PERALES MD PCP: MITRA ROLAND MD REPORT IS CONFIDENTIAL AND NOT TO BE RELEASED WITHOUT AUTHORIZATION [facility] [address] [place], [place] [address] Signed including, but not limited to gas bloating, crampy abdominal pain, bleeding, perforation requiring surgery, and missed diagnosis. He told me that he has no ride tonight and he would have to go home in the morning. He had expressed understanding and wished to proceed. DESCRIPTION OF PROCEDURE: Dereck was taken into our endoscopy suite and placed in the supine semi-recumbent position. Again, he was able to control his secretions. He was placed under general endotracheal tube anesthesia. A bite block was utilized. The adult gastroscope was introduced and advanced under direct visualization of camera without difficulty. We went all the way out into the 2nd portion of the duodenum. The duodenum and pyloric channel were quite healthy. He had very minimal erythematous changes in the distal half of his stomach. We took a biopsy from the antrum for CLOtest as well as pathologic review. Upon retroflexion of scope we do not see any evidence of hiatal hernia. The scope was withdrawn up through the area of GE junction, which was compliant without stricture. There were no gastric or esophageal varices. He indeed has Lerma's esophagus and it does measure around 23-25 cm from his incisors. We took a single biopsy from this area for pathologic review. Then just above this, he had just a little bit of esophagitis. He told me it is much better since he has been on Protonix and Carafate. The middle and upper esophagus were unremarkable. After this, the gas was suctioned out and the gastroscope removed. Dereck tolerated the procedure quite well. RECOMMENDATIONS: I will see Dereck back in my office in 7 to 14 days to review his results. He really should have a primary care provider here in [place]. Although, he said he is trying to get his way back to [place] to be close to his family. He should continue the Protonix and the Carafate. Brittaney Perales MD ALB/MERCYL /[id number] cc: Patient chart Mitra Roland MD Electronically Signed By: BRITTANEY PERALES MD 03/21/24 0231 PATIENT NAME: DERECK MAR OPERATIVE REPORT DATE OF : 84 REPORT #: [id number] PHYSICIAN: BRITTANEY PERALES MD PCP: MITRA ROLAND MD REPORT IS CONFIDENTIAL AND NOT TO BE RELEASED WITHOUT AUTHORIZATION [facility] [address] [place], [place] [address] Signed Brittaney Perales MD Copies: MITRA ROLAND MD, ANDREW L MD ~ Electronically Signed By: BRITTANEY PERALES MD 03/21/24 0231 PATIENT NAME: DERECK MAR OPERATIVE REPORT DATE OF : 84 REPORT #: [id number] PHYSICIAN: BRITTANEY PERALES MD PCP: MITRA ROLAND MD REPORT IS CONFIDENTIAL AND NOT TO BE RELEASED WITHOUT AUTHORIZATION
[2024-03-21 03:20] VITALS: BP 112/76
--- NOTE | 2024-03-21 03:29 | NUR ---
Patient resting in bed, eyes closed, respirations even and non labored. Vital signs stable, sp02 95% on rooom air, hob elevated. Patient has no distress. Bed alarm intact.
--- NOTE | 2024-03-21 03:30 | NUR ---
REPORT RECEIVED FROM VERA FERNANDES. pt RESTING IN BED WITH EYES CLOSED. NO DISTRESS NOTED. ASSUMED CARE OF pt.
[2024-03-21 04:42] VITALS: BP 112/76
--- NOTE | 2024-03-21 04:47 | NUR ---
CHECKED ON pt. RESTING IN BED WITH EYES CLOSED. BREATHING EQUAL AND UNLABORED. SPO2 WNL. NO DISTRESS NOTED.
[2024-03-21 05:51] VITALS: BP 118/71
--- NOTE | 2024-03-21 06:13 | NUR ---
pt AWAKE TEXTING ON PHONE. VSS. URINAL EMPTIED. IVF INFUSING WNL. CALL LIGHT IN REACH.
[2024-03-21] MEDS ORDERED: PANTOPRAZOLE SODIUM 40 MG TABEC PO SCH (07:30)
--- NOTE | 2024-03-21 07:39 | NUR ---
REPORT RECEIVED FROM NIGHT RN - PT AWAKE IN BED LOOKING AT PHONE. DENIES NEEDS AT THIS TIME. STATES HE HAS TEXTED FRIEND FOR RIDE, AWAITING FOR RESPONSE FROM FRIEND. CALL LIGHT IN REACH.
--- NOTE | 2024-03-21 08:26 | NUR ---
Board has been updated and patient is ready for breakfeast. No request at this time from patient. Call light has been placed within reach
--- NOTE | 2024-03-21 09:01 | NUR ---
RN IN ROOM TO ADMINISTER SCHEDULED MEDICATION - PT SITTING UP IN BED, FINISHED WITH BREAKFAST WHICH HE WAS ABLE TO EAT WITHOUT DIFFICULTY. EDUCATION DISCUSSED ON FOODS GOOD FOR GASTRITIS. PT STATES HE ONLY NEEDS A RIDE ACROSS [facility] IN [place] SO TAXI RIDE WAS OFFERED WHICH PT IS OK WITH.
[2024-03-21 09:16] VITALS: BP 142/91
--- NOTE | 2024-03-21 09:51 | NUR ---
DC HOME INSTRUCTIONS PROVIDED TO PT - REVIEWED WITH THIS RN. PT STATES UNDERSTANDING, ALL QUESTIONS ANSWERED. TONNY CALLED FOR CARE RIDE.
--- NOTE | 2024-03-23 12:35 | PATH ---
[facility] [address], [place] [address] Signed SPECIMEN(S): A ANTRUM/PYLORUS BIOPSY SPECIMEN(S): B ESOPHAGEAL BIOPSY SPECIMEN SOURCE: A. ANTRUM/PYLORUS BIOPSY B. ESOPHAGEAL BIOPSY CLINICAL HISTORY: FB esophagus, history of gastritis, B) history of Lerma's, mild gastritis, distal esophagitis, Lerma's esophagus FINAL PATHOLOGIC DIAGNOSIS: A. Stomach, antrum/pylorus, biopsy: - Gastric antral and oxyntic mucosa with no significant pathologic changes - Negative for Helicobacter pylori with HE stains B. Esophagus, biopsy: - Squamoglandular mucosa with intestinal metaplasia; negative for dysplasia BRP MICROSCOPIC EXAMINATION: Histologic sections of all submitted blocks are examined by light microscopy. These findings, together with the gross examination, support the pathologic diagnosis. GROSS DESCRIPTION: A. The specimen, labeled and designated "Mar, antrum/pylorus biopsy," is received in formalin and consists of one baum soft tissue fragment, 0.9 cm. Entirely submitted in (A1). B. The specimen, labeled and designated "Mar, esophageal biopsy," is received in formalin and consists of one baum soft tissue fragment, 0.7 cm. Entirely submitted in (B1). VB (under the direct supervision of a pathologist) The Gross Description was prepared using a voice recognition system. The report was reviewed for accuracy; however, sound-alike word errors, addition and/or deletions may occur. If there is any question about this report, please contact Client Services. ADDITIONAL NOTES: Immunohistochemical and/or in situ hybridization studies if performed in this case included appropriate positive controls that reacted as expected. This test was developed and its performance PATIENT NAME: WILLIAM MAR PATHOLOGY DATE OF : 84 REPORT #: [id number] PHYSICIAN: HALIE DONALD PCP: NANCY HIGHTOWER MD REPORT IS CONFIDENTIAL AND NOT TO BE RELEASED WITHOUT AUTHORIZATION [facility] [address], [place] [address] Signed characteristics determined by [employer] It has not been cleared or approved by the U.S. Food and Drug Administration. The FDA has determined that such clearance or approval is not necessary. This test is used for clinical purposes. It should not be regarded as investigational or for research. [employer] [facility] is certified under the Clinical Laboratory Improvement Amendments of 1988 (CLIA) as qualified to perform high complexity clinical laboratory testing. PERFORMING LABORATORY: Technical component was performed by [employer] [facility] [address] [place] [address] (CLIA# [id number]). Professional interpretation was performed by [facility] - [facility] [address] [facility] [id number] Diagnostician: Geoff Webber MD Pathologist Electronically Signed 03/23/2024 Copies: ~ PATIENT NAME: WILLIAM MAR PATHOLOGY DATE OF : 84 REPORT #: [id number] PHYSICIAN: HALIE PATHOLOGY PCP: NANCY HIGHTOWER MD REPORT IS CONFIDENTIAL AND NOT TO BE RELEASED WITHOUT AUTHORIZATION
== END 2024-03-21 09:55 | disposition home or self-care (01) ==
LOC: ED 18:27 → MS 21:53 → DS 21:53 → MS 21:54 → DS 03-21 09:55
PROVIDERS: Family Medicine; ATTEND Colon & Rectal Surgery
PROC: 0DB68ZX Excision of Stomach, Via Natural or Artificial Opening Endoscopic, Diagnostic (ICD-10-PCS; 2024-03-20)
PROC: 0DB38ZX Excision of Lower Esophagus, Via Natural or Artificial Opening Endoscopic, Diagnostic (ICD-10-PCS; principal; 2024-03-20 22:01)
DX: K29.70 Gastritis, unspecified, without bleeding (principal); K22.70 Barrett's esophagus without dysplasia; K20.90 Esophagitis, unspecified without bleeding; R56.9 Unspecified convulsions; R09.A2 Foreign body sensation, throat; F81.9 Developmental disorder of scholastic skills, unspecified
CPT/HCPCS: 00813; 36415; 70490; 80053; 85025; 87077; 88305; 96360; 96361; 96374; 99285-25; A9270; J0330; J1100; J1610; J2003; J2405; J2704; J3010; J3490; J7121